=== PATIENT | female | born 1970 | race Caucasian/White ===

== ENCOUNTER → 2016-10-03 | Outpatient (REF) | payer OTHER ==
[~2016-10-03] MED LIST: EFFE150C PO; IBUPOTC PO; OMEP40CA2 PO
[2016-10-03 17:29] LABS: ANION GAP 7 MEQ/L (8-16); BLOOD UREA NITROGEN 20 MG/DL (7-18); CALCIUM LEVEL 8.8 MG/DL (8.5-10.1); CARBON DIOXIDE LEVEL 29 MEQ/L (21-32); CHLORIDE LEVEL 108 MEQ/L (98-107); CREATININE FOR GFR 0.94 MG/DL (0.55-1.02); GLOMERULAR FILTRATION RATE > 60.0 (>58); GLUCOSE, FASTING 90 MG/DL (70-105); POTASSIUM SERUM 4.1 MEQ/L (3.5-5.1); SODIUM LEVEL 144 MEQ/L (136-145)
== END ==
LOC: M LAB REF 15:59
PROVIDERS: ATTEND Physician Assistant
DX: N39.0 Urinary tract infection, site not specified (principal)

== ENCOUNTER → 2017-02-22 | Outpatient (REF) | payer OTHER | LOC: M SFHCPLAZ 15:59 | PROVIDERS: ATTEND Nurse Practitioner Family | DX: Z00.00 Encounter for general adult medical examination without abnormal findings (principal); F41.9 Anxiety disorder, unspecified; Z13.220 Encounter for screening for lipoid disorders ==

== ENCOUNTER → 2017-11-09 | Outpatient (REF) | payer OTHER ==
[2017-11-09 15:44] LABS: APPEARANCE, URINE CLOUDY (CLEAR); BACTERIA, URINE AUTO 1+ (NEGATIVE); BILIRUBIN, URINE AUTO NEGATIVE (NEGATIVE); BLOOD, URINE BLOOD 1+ (NEGATIVE); COLOR, URINE YELLOW (YELLOW); GLUCOSE, URINE (UA) AUTO NEGATIVE (NEGATIVE); KETONE, URINE AUTO NEGATIVE (NEGATIVE); LEUKOCYTE ESTERASE, URINE AUTO NEGATIVE (NEGATIVE); MUCUS, URINE SMALL (NEGATIVE); NITRITE, URINE AUTO POSITIVE (NEGATIVE); PROTEIN, URINE AUTO NEGATIVE (NEGATIVE); RBC, URINE AUTO 4 /HPF (0-3); SPECIFIC GRAVITY URINE AUTO 1.019 (1.002-1.035); SQUAMOUS EPITHELIAL CELL UR AU 5 /HPF (0-6); UROBILINOGEN, URINE AUTO 0.2 mg/dL (0.0-2.0); WBC, URINE AUTO 6 /HPF (0-3)
== END ==
LOC: M SMT 15:27
DX: R30.0 Dysuria (principal)

== ENCOUNTER → 2018-04-05 | Outpatient (REF) | payer OTHER ==
[2018-04-05 18:04] LABS: BASO # 0.1 10^3/uL (0.0-0.2); BASO % 0.5 % (0.0-1.0); EOS # 0.3 10^3/uL (0.0-0.50); EOS % 3.1 % (0.0-3.0); HEMATOCRIT 42.6 % (36.0-47.0); HEMOGLOBIN 13.8 g/dl (12.0-15.5); IMMATURE GRANULOCYTE % 0.7 % (0-3.0); LYMPH # 2.3 10^3/uL (1.5-4.5); LYMPH % 23.8 % (24.0-44.0); MEAN CORPUSCULAR HEMOGLOBIN 30.1 pg (27.0-33.0); MEAN CORPUSCULAR HGB CONC 32.4 g/dl (32.0-36.5); MEAN CORPUSCULAR VOLUME 92.8 fl (80.0-96.0); MONO # 0.7 10^3/uL (0.0-0.8); MONO % 7.2 % (0.0-5.0); NEUTROPHILS # 6.3 10^3/uL (1.8-7.7); NEUTROPHILS % 64.7 % (36.0-66.0); PLATELET COUNT, AUTOMATED 264 10^3/uL (150-450); RED BLOOD COUNT 4.59 10^6/uL (4.00-5.40); RED CELL DISTRIBUTION WIDTH 13.8 % (11.5-14.5); WHITE BLOOD COUNT 9.8 10^3/uL (4.0-10.0)
[2018-04-05 18:19] LABS: ALBUMIN 3.6 GM/DL (3.2-5.2); ALBUMIN/GLOBULIN RATIO 1.13 (1.00-1.93); ALKALINE PHOSPHATASE 75 U/L (45-117); ALT/SGPT 24 U/L (12-78); ANION GAP 6 MEQ/L (8-16); AST/SGOT 11 U/L (7-37); BILIRUBIN,TOTAL 0.2 MG/DL (0.2-1.0); BLOOD UREA NITROGEN 19 MG/DL (7-18); CALCIUM LEVEL 8.9 MG/DL (8.5-10.1); CARBON DIOXIDE LEVEL 29 MEQ/L (21-32); CHLORIDE LEVEL 106 MEQ/L (98-107); CREATININE FOR GFR 0.93 MG/DL (0.55-1.30); GLOMERULAR FILTRATION RATE > 60.0 (>58); GLUCOSE, FASTING 75 MG/DL (70-100); POTASSIUM SERUM 4.4 MEQ/L (3.5-5.1); SODIUM LEVEL 141 MEQ/L (136-145); TOTAL PROTEIN 6.8 GM/DL (6.4-8.2)
[2018-04-06 10:57] LABS: AMORPHOUS SEDIMENT MODERATE (NEGATIVE); APPEARANCE, URINE TURBID (CLEAR); BACTERIA, URINE AUTO 3+ (NEGATIVE); BILIRUBIN, URINE AUTO NEGATIVE (NEGATIVE); BLOOD, URINE BLOOD 1+ (NEGATIVE); COLOR, URINE AMBER (YELLOW); GLUCOSE, URINE (UA) AUTO NEGATIVE (NEGATIVE); KETONE, URINE AUTO NEGATIVE (NEGATIVE); LEUKOCYTE ESTERASE, URINE AUTO TRACE (NEGATIVE); MUCUS, URINE SMALL (NEGATIVE); NITRITE, URINE AUTO POSITIVE (NEGATIVE); PROTEIN, URINE AUTO NEGATIVE (NEGATIVE); RBC, URINE AUTO 0 /HPF (0-3); SPECIFIC GRAVITY URINE AUTO 1.025 (1.002-1.035); SQUAMOUS EPITHELIAL CELL UR AU 0 /HPF (0-6); URIC ACID CRYSTALS MODERATE; UROBILINOGEN, URINE AUTO 0.2 mg/dL (0.0-2.0); WBC, URINE AUTO 1 /HPF (0-3)
== END ==
LOC: M SFHCPLAZ 15:26
DX: N30.90 Cystitis, unspecified without hematuria (principal)

== ENCOUNTER → 2018-06-04 | Outpatient (REF) | payer OTHER | LOC: M SFHCPLAZ 15:36 | DX: F41.8 Other specified anxiety disorders (principal) ==

== ENCOUNTER → 2018-07-23 | Outpatient (REF) | payer OTHER ==
[2018-07-23 13:42] LABS: THYROID PEROXIDASE ANTIBODY < 28.0 U/ML (<60.0)
[2018-07-23 13:50] LABS: FREE T4 0.89 NG/DL (0.76-1.46)
== END ==
LOC: M SFHCPLAZ 10:05
DX: R79.89 Other specified abnormal findings of blood chemistry (principal); N39.0 Urinary tract infection, site not specified

== ENCOUNTER → 2018-12-13 | Outpatient (REF) | payer OTHER ==
[~2018-12-13] MED LIST changes: -EFFE150C PO; +EFFE150C2 PO
== END ==
LOC: M SFHCPLAZ 11:54
PROVIDERS: ATTEND Nurse Practitioner Family
DX: A08.4 Viral intestinal infection, unspecified (principal)

== ENCOUNTER → 2019-05-07 | Outpatient (REF) | payer OTHER ==
[2019-05-07 11:54] LABS: BASO % 0.5 % (0.0-1.0); EOS # 0.3 10^3/uL (0.0-0.50); EOS % 3.5 % (0.0-3.0); HEMATOCRIT 43.5 % (36.0-47.0); HEMOGLOBIN 13.9 g/dl (12.0-15.5); LYMPH # 2.1 10^3/uL (1.5-4.5); LYMPH % 26.1 % (24.0-44.0); MONO # 0.6 10^3/uL (0.0-0.8); NEUTROPHILS # 4.9 10^3/uL (1.8-7.7); PLATELET COUNT, AUTOMATED 250 10^3/uL (150-450); RED BLOOD COUNT 4.63 10^6/uL (4.00-5.40)
[2019-05-07 12:02] LABS: ALBUMIN 3.7 GM/DL (3.2-5.2); ALT/SGPT 25 U/L (12-78); BILIRUBIN,TOTAL 0.1 MG/DL (0.2-1.0); BLOOD UREA NITROGEN 15 MG/DL (7-18); CALCIUM LEVEL 9.1 MG/DL (8.5-10.1); CARBON DIOXIDE LEVEL 30 MEQ/L (21-32); CHLORIDE LEVEL 108 MEQ/L (98-107); CHOLESTEROL LEVEL 248 MG/DL (<200); CHOLESTEROL RISK RATIO 4.275 (<5); FREE T4 0.94 NG/DL (0.76-1.46); GLOMERULAR FILTRATION RATE > 60.0 (>58); GLUCOSE, FASTING 88 MG/DL (70-100); HDL CHOLESTEROL 58 MG/DL (>40); LDL CHOLESTEROL 173 MG/DL (<100); NON-HDL-C 190 MG/DL; POTASSIUM SERUM 4.3 MEQ/L (3.5-5.1); SODIUM LEVEL 141 MEQ/L (136-145); TOTAL PROTEIN 6.7 GM/DL (6.4-8.2); TRIGLYCERIDES LEVEL 87 MG/DL (<150)
== END ==
LOC: M SFHCPLAZ 09:16
PROVIDERS: ATTEND Nurse Practitioner Family
DX: Z13.220 Encounter for screening for lipoid disorders (principal); R06.02 Shortness of breath; R53.83 Other fatigue; F41.8 Other specified anxiety disorders; Z68.38 Body mass index [BMI] 38.0-38.9, adult; E66.9 Obesity, unspecified

== ENCOUNTER → 2020-04-28 | Outpatient (REF) | payer OTHER, MEDICAID ==
[~2020-04-28] MED LIST changes: -OMEP40CA2 PO; +OMEP40CA97 PO
[2020-05-31 15:40] LABS: BASO % 0.4 % (0.0-1.0); EOS # 0.2 10^3/uL (0.0-0.5); EOS % 2.8 % (0.0-3.0); HEMATOCRIT 43.2 % (36.0-47.0); HEMOGLOBIN 13.9 g/dl (12.0-15.5); LYMPH # 1.5 10^3/uL (1.5-5.0); LYMPH % 21.8 % (24.0-44.0); MEAN CORPUSCULAR HEMOGLOBIN 29.8 pg (27.0-33.0); MEAN CORPUSCULAR HGB CONC 32.2 g/dl (32.0-36.5); MEAN CORPUSCULAR VOLUME 92.7 fl (80.0-96.0); MONO # 0.4 10^3/uL (0.0-0.8); MONO % 5.1 % (0.0-5.0); NEUTROPHILS # 4.7 10^3/uL (1.5-8.5); NEUTROPHILS % 69.5 % (36.0-66.0); PLATELET COUNT, AUTOMATED 268 10^3/uL (150-450); RED BLOOD COUNT 4.66 10^6/uL (4.00-5.40); WHITE BLOOD COUNT 6.8 10^3/uL (4.0-10.0)
[2020-06-12 17:08] LABS: ALBUMIN 3.7 GM/DL (3.2-5.2); ALT/SGPT 21 U/L (12-78); BILIRUBIN,TOTAL 0.2 MG/DL (0.2-1.0); BLOOD UREA NITROGEN 13 MG/DL (7-18); CALCIUM LEVEL 9.2 MG/DL (8.5-10.1); CARBON DIOXIDE LEVEL 27 MEQ/L (21-32); CHLORIDE LEVEL 108 MEQ/L (98-107); CHOLESTEROL LEVEL 250 MG/DL (<200); CHOLESTEROL RISK RATIO 4.901 (<5); CREATININE FOR GFR 0.92 MG/DL (0.55-1.30); FREE T4 1.08 NG/DL (0.76-1.46); GLOMERULAR FILTRATION RATE > 60.0 (>58); GLUCOSE, FASTING 101 MG/DL (70-100); HDL CHOLESTEROL 51 MG/DL (>40); LDL CHOLESTEROL 175 MG/DL (<100); NON-HDL-C 199 MG/DL; POTASSIUM SERUM 4.3 MEQ/L (3.5-5.1); SODIUM LEVEL 142 MEQ/L (136-145); TOTAL 25(OH) VITAMIN D 21.5 NG/ML (30.0-100.0); TOTAL PROTEIN 7.1 GM/DL (6.4-8.2); TRIGLYCERIDES LEVEL 119 MG/DL (<150)
[2020-06-12 17:09] LABS: HEMOGLOBIN A1c 5.4 %
== END ==
LOC: M LAB REF 09:52
PROVIDERS: ATTEND Nurse Practitioner Family
DX: H91.93 Unspecified hearing loss, bilateral (principal); F12.90 Cannabis use, unspecified, uncomplicated; Z13.29 Encounter for screening for other suspected endocrine disorder

== ENCOUNTER → 2020-08-27 | Outpatient (REF) | payer OTHER, MEDICAID ==
[2020-08-27 17:52] LABS: BASO % 0.5 % (0.0-1.0); EOS # 0.3 10^3/uL (0.0-0.5); EOS % 4.5 % (0.0-3.0); HEMATOCRIT 42.4 % (36.0-47.0); HEMOGLOBIN 13.1 g/dl (12.0-15.5); LYMPH # 1.8 10^3/uL (1.5-5.0); LYMPH % 28.4 % (24.0-44.0); MEAN CORPUSCULAR HEMOGLOBIN 28.4 pg (27.0-33.0); MEAN CORPUSCULAR HGB CONC 30.9 g/dl (32.0-36.5); MEAN CORPUSCULAR VOLUME 91.8 fl (80.0-96.0); MONO # 0.4 10^3/uL (0.0-0.8); MONO % 6.7 % (0.0-5.0); NEUTROPHILS # 3.7 10^3/uL (1.5-8.5); NEUTROPHILS % 59.6 % (36.0-66.0); PLATELET COUNT, AUTOMATED 234 10^3/uL (150-450); RED BLOOD COUNT 4.62 10^6/uL (4.00-5.40); WHITE BLOOD COUNT 6.2 10^3/uL (4.0-10.0)
[2020-08-27 18:36] LABS: ALBUMIN 3.6 GM/DL (3.2-5.2); ALT/SGPT 23 U/L (12-78); BILIRUBIN,TOTAL 0.5 MG/DL (0.2-1.0); BLOOD UREA NITROGEN 12 MG/DL (7-18); CARBON DIOXIDE LEVEL 28 MEQ/L (21-32); CHLORIDE LEVEL 109 MEQ/L (98-107); CHOLESTEROL LEVEL 251 MG/DL (<200); CHOLESTEROL RISK RATIO 4.563 (<5); CREATININE FOR GFR 0.81 MG/DL (0.55-1.30); FREE T4 0.98 NG/DL (0.76-1.46); GLOMERULAR FILTRATION RATE > 60.0 (>51); GLUCOSE, FASTING 79 MG/DL (70-100); HDL CHOLESTEROL 55 MG/DL (>40); LDL CHOLESTEROL 176 MG/DL (<100); NON-HDL-C 196 MG/DL; SODIUM LEVEL 139 MEQ/L (136-145); TOTAL 25(OH) VITAMIN D 22.9 NG/ML (30.0-100.0); TOTAL PROTEIN 6.5 GM/DL (6.4-8.2); TRIGLYCERIDES LEVEL 100 MG/DL (<150)
== END ==
LOC: M LAB REF 16:39
PROVIDERS: ATTEND Nurse Practitioner Family
DX: E78.5 Hyperlipidemia, unspecified (principal); E66.9 Obesity, unspecified; G89.4 Chronic pain syndrome

== ENCOUNTER → 2020-09-22 | Outpatient (CLI) | payer OTHER ==
[2020-09-22 11:07] LABS: BASO % 0.6 % (0.0-1.0); EOS # 0.3 10^3/uL (0.0-0.5); EOS % 3.7 % (0.0-3.0); HEMATOCRIT 43.2 % (36.0-47.0); HEMOGLOBIN 13.5 g/dl (12.0-15.5); LYMPH # 2.1 10^3/uL (1.5-5.0); MEAN CORPUSCULAR HEMOGLOBIN 28.8 pg (27.0-33.0); MEAN CORPUSCULAR HGB CONC 31.3 g/dl (32.0-36.5); MEAN CORPUSCULAR VOLUME 92.1 fl (80.0-96.0); MONO # 0.5 10^3/uL (0.0-0.8); MONO % 6.5 % (0.0-5.0); NEUTROPHILS # 4.2 10^3/uL (1.5-8.5); NEUTROPHILS % 58.8 % (36.0-66.0); PLATELET COUNT, AUTOMATED 273 10^3/uL (150-450); RED BLOOD COUNT 4.69 10^6/uL (4.00-5.40); WHITE BLOOD COUNT 7.1 10^3/uL (4.0-10.0)
[2020-09-22 11:36] LABS: C REACTIVE PROTEIN QUANTITATIV 0.42 MG/DL (0.00-0.30); RHEUMATOID FACTOR QUANT < 10.0 IU/ML (<15.0); URIC ACID 5.5 MG/DL (2.6-6.0)
[2020-09-22 11:44] LABS: ERYTHROCYTE SEDIMENTATION RATE 14 mm/hr (0-30)
== END ==
LOC: M LAB 10:25
PROVIDERS: ATTEND Orthopaedic Surgery
DX: M79.672 Pain in left foot (principal)

== ENCOUNTER 2020-10-29 15:04 | Emergency (ER) | payer OTHER ==
[~2020-10-29] VITALS: Ht 162.6 cm; Wt 95.0 kg
--- OUTSIDE RECORDS SUMMARY | 2020-10-29 15:11 | CCD | Continuity of Care Document ---
Author Author Jessi ZALDIVARC Organization Unknown Address [address] [place] [address] Phone [phone] Care Team Providers Care Wireless Sales Expert Name Role Phone Sandie Curran AUTM Problems Description No Information Available Social History Type Date Description Comments Sex Unknown ETOH Use Rarely consumes alcohol Tobacco Use Start: Unknown Denies Smoking Allergies, Adverse Reactions, Alerts Description No Known Drug Allergies Medications Active Medications SIG Qnty Indications Ordering Provide r Date Atorvastatin Calcium 20mg Tablets Take One Tablet By Mouth Every Day Unknown Gabapentin 400mg Capsules Take One Capsule By Mouth Three Times A Day Unknown Vitamin D (Ergocalciferol) 1.25mg (01741 Ut) Capsules Take One Capsule By Mouth Every Week as Directed Unknown Gabapentin 300mg Capsules Sandie Curran FNP Fluticasone Propionate 50mcg/Act Suspension [place] Two Sprays In Each Nostril Every Day Unknown Meclizine HCL 25mg Tablets Take One Tablet By Mouth Every Day as Needed For Vertigo For 10 Days May Cause Drowsiness Unknown Pseudoephedrine HCL 30mg Tablets Take One Tablet By Mouth Four Times A Day as Needed For 10 Days Unknown Immunizations Description No Information Available Vital Signs Date Vital Result Comment 10/08/2020 2:35pm Body Temperature 96.6 F 09/22/2020 9:45am Body Temperature 96.9 F Height 64.25 inches 5'4.25" Weight 210.12 lb BMI (Body Mass Index) 35.8 kg/m2 Results Test Acquired Date Facility Test Result H/L Range Note CBC With Differential 09/22/2020 [facility] [address] [place] [address] (315)- - White Blood Count 7.1 10 Normal 4.0-10.0 Red Blood Count 4.69 10 Normal 4.00-5.40 Hemoglobin 13.5 g/dL Normal 12.0-15.5 Hematocrit 43.2 % Normal 36.0-47.0 Mean Corpuscular Volume 92.1 fl Normal 80.0-96.0 Mean Corpuscular Hemoglobin 28.8 pg Normal 27.0-33.0 Mean Corpuscular HGB Conc 31.3 g/dL Low 32.0-36.5 Red Cell Distribution Width 15.0 % High 11.5-14.5 Platelet Count, Automated 273 10 Normal 150-450 Neutrophils % 58.8 % Normal 36.0-66.0 Lymph % 30.0 % Normal 24.0-44.0 [place] % 6.5 % High 0.0-5.0 Eos % 3.7 % High 0.0-3.0 Baso % 0.6 % Normal 0.0-1.0 Immature Granulocyte % 0.4 % Normal 0-3.0 Nucleated Red Blood Cell % 0.0 % Normal 0-0 Neutrophils # 4.2 10 Normal 1.5-8.5 Lymph # 2.1 10 Normal 1.5-5.0 [place] # 0.5 10 Normal 0.0-0.8 Eos # 0.3 10 Normal 0.0-0.5 Baso # 0.0 10 Normal 0.0-0.2 Laboratory test finding 09/22/2020 [facility] [address] [place] [address] (315)- - Uric Acid 5.5 mg/dL Normal 2.6-6.0 Rheumatoid Factor Quant < 10.0 IU/mL Normal <15.0 Antinuclear Antibodies 09/22/2020 [facility] [address] [place] [address] (315)- - Antinuclear Antibodies Direct Negative Normal Negati ve 1 Laboratory test finding 09/22/2020 [facility] [address] [place] [address] (315)- - Erythrocyte Sedimentation Rate 14 mm/hr Normal 0-30 Hla-B27 Negative Normal . 2 C Reactive Protein Quantitativ 0.42 mg/dL High 0.00-0.30 Lyme Disease SCRN With Confirm 09/22/2020 [facility] [address] [place] [address] (217)- - Lyme Disease IgG/IgM Antibodie <0.91 ISR Normal 0.00- 0.90 3 Lyme Disease IgM Ab Quantitati <0.80 index Normal 0.00-0.79 4 1 Performed at: RN - [address] [id number] Brain Surgeon: Fina Damon MD, Phone: [phone] Performed at: - [address] [id number] Brain Surgeon: Nic Fowler PhD, Phone: [phone] HLA-B*27 Negative B27 allele interpretation for all loci based on IMGT/HLA database version 3.38 This test was developed and its performance characteristics determined by [facility]. It has not been cleared or approved by the Food and Drug Administration. [facility] CLIA ID Number [id number] . This test was performed using PCR (Polymerase Chain Reaction)/SSOP (Sequence Specific Oligonucleotide Probes) technique. SBT (Sequence Based Typing) and/or SSP (Sequence Specific Primers) may be used as supplemental methods when necessary. Please contact HLA Customer Service at if you have any questions. . Director of HLA Laboratory Dr Nic Fowler, PhD 3 Negative <0.91 Equivocal 0.91 - 1.09 Positive >1.09 4 Negative <0.80 Equivocal 0.80 - 1.19 Positive >1.19 . IgM levels may peak at 3-6 weeks post infection, then gradually decline. Procedures Date Code Description Status 10/08/2020 25477 X-Ray Ankle Complete Completed Medical Devices Description No Information Available Encounters Type Date Location Provider Dx Diagnosis Office Visit 10/08/2020 2:30p Cal Zaldivar PA-C M7 6.822 Posterior tibial tendinitis, left leg M21.42 Flat foot [pes planus] (acqu ired), left foot M21.41 Flat foot [pes planus] (acqu ired), right foot Office Visit 09/22/2020 9:30a NORMA SuárezC M2 5.59 Pain in other specified joint Assessments Date Code Description Provider 10/08/2020 M76.822 Posterior tibial tendinitis, lef t leg Davon Zaldivar PA-C 10/08/2020 M21.42 Flat foot [pes planus] (acquired ), left foot Davon Zaldivar PA-C 10/08/2020 M21.41 Flat foot [pes planus] (acquired ), right foot Davon Zaldivar PA-C 09/22/2020 M25.59 Pain in other specified joint Ba tuan Zaldivar PA-C Plan of Treatment Future Appointment(s):* 11/05/2020 8:30 am - Davon Zaldivar PA-C at [place] 10/08/2020 - Davon Zaldivar PA-C* M76.822 Posterior tibial tendinitis, left leg * M21.42 Flat foot [pes planus] (acquired), left foot* New Orders:* [employer], Ordered: 10/08/20 * Follow up:* in 4 weeks for benji feet recheck with bms * M21.41 Flat foot [pes planus] (acquired), right foot Functional Status Description No Information Available Mental Status Description No Information Available Referrals Description No Information Available
--- OUTSIDE RECORDS SUMMARY | 2020-10-29 15:12 | CCD | Continuity of Care Document ---
Author Author Jessi ZALDIVARC Organization Unknown Address [address] [address] Phone [phone] Care Team Providers Care Conservation Science Teacher Name Role Phone Sandie Curran AUTM Problems [...] A Day Unknown Vitamin D (Ergocalciferol) 1.25mg (98180 Ut) Capsules Take One Capsule By Mouth Every Week as Directed Unknown Gabapentin 300mg Capsules Sandie Curran FNP Fluticasone Propionate 50mcg/Act Suspension [place] Two Sprays In Each Nostril Every Day Unknown Meclizine HCL 25mg Tablets Take One Tablet By Mouth Every Day as Needed For Vertigo For 10 Days May Cause Drowsiness Unknown Pseudoephedrine HCL 30mg Tablets Take One Tablet By Mouth Four Times A Day as Needed For 10 Days Unknown Immunizations Description No Information Available Vital Signs Date Vital Result Comment 09/22/2020 9:45am Body Temperature 96.9 F Height 64.25 inches 5'4.25" Weight 210.12 lb BMI (Body Mass Index) 35.8 kg/m2 Results Test Acquired Date Facility Test Result H/L Range Note CBC With Differential 09/22/2020 [facility] [address] [place] [address] (315)- - White Blood Count 7.1 10 [...] 36.0-66.0 Lymph % 30.0 % Normal 24.0-44.0 [place] % 6.5 % High 0.0-5.0 Eos % 3.7 % High 0.0-3.0 Baso % 0.6 % Normal 0.0-1.0 Immature Granulocyte % 0.4 % Normal 0-3.0 Nucleated Red Blood Cell % 0.0 % Normal 0-0 Neutrophils # 4.2 10 Normal 1.5-8.5 Lymph # 2.1 10 Normal 1.5-5.0 [place] # 0.5 10 Normal 0.0-0.8 Eos # 0.3 10 Normal 0.0-0.5 Baso # 0.0 10 Normal 0.0-0.2 Laboratory test finding 09/22/2020 [facility] [address] [place] [address] (315)- - Uric Acid 5.5 mg/dL Normal 2.6-6.0 Rheumatoid Factor Quant < 10.0 IU/mL Normal <15.0 Antinuclear Antibodies 09/22/2020 [facility] [address] [place] [address] (315)- - Antinuclear Antibodies Direct Negative Normal Negati ve 1 Laboratory test finding 09/22/2020 [facility] [address] [place] [address] (315)- - Erythrocyte Sedimentation Rate 14 mm/hr Normal 0-30 Hla-B27 Negative Normal . 2 C Reactive Protein Quantitativ 0.42 mg/dL High 0.00-0.30 Lyme Disease SCRN With Confirm 09/22/2020 [facility] [address] [place], [place] [id number] (262)- - Lyme Disease IgG/IgM Antibodie <0.91 ISR Normal 0.00- 0.90 3 Lyme Disease IgM Ab Quantitati <0.80 index Normal 0.00-0.79 4 1 Performed at: - [address] [id number] Theatre Program Director: Fina Damon MD, Phone: [phone] Performed at: - [address] [id number] Theatre Program Director: Nic Fowler PhD, Phone: [phone] HLA-B*27 Negative B27 allele interpretation for all loci based on IMGT/HLA database version 3.38 This test was developed and its performance characteristics determined by [facility]. It has not been cleared or approved by the Food and Drug Administration. [facility] CLIA ID Number [id number] . This test was performed using PCR [...] weeks post infection, then gradually decline. Procedures Description No Information Available Medical Devices Description No Information Available Encounters Type Date Location Provider Dx Diagnosis Office Visit 09/22/2020 9:30a [place] Davon Zaldivar PA-C M2 5.59 Pain in other specified joint Assessments Date Code Description Provider 09/22/2020 M25.59 Pain in other specified joint Ba tuan Zaldivar PA-C Plan of Treatment Future Appointment(s):* 10/08/2020 2:30 pm - Davon Zaldivar PA-C at [place] 09/22/2020 - Davon Zaldivar PA-C* M25.59 Pain in other specified joint* Follow up:* after completed labs for results with bms Functional Status Description No Information Available Mental Status Description No Information Available Referrals Description No Information Available
--- OUTSIDE RECORDS SUMMARY | 2020-10-29 15:12 | CCD ---
Author Organization Unknown Address [address] [place] [address] Phone [phone] Care Team Providers Care Data Communications Software Consultant Name Role Phone Sandie Curran Unavailable Unavailable Allergies Code Code System Name Reaction Severity Status Onset NKDA Medications Name Status Start Date Stop Date fluticasone propionate 50 mcg/actuation nasal spray,suspension C ompleted 07/27/2020 gabapentin 300 mg capsule Take 1 capsule 3 times a day by oral route as directed. Active Not available meclizine 25 mg tablet Completed 0 One A Day Vitamin Active Not available pseudoephedrine 30 mg tablet Completed 05/2020 Problems Name Status Onset Date Source Cannabis Abuse Active 04/07/2020 History Endocrine/metabolic Screening Active 04/07/2020 Hi story Hearing Finding Active 04/07/2020 History Clinical Finding Active 04/07/2020 History General Finding of Observation of Patient Active 2019 History Procedures Date Name Performed by Hysterectomy Information not avai lable Tubal Ligation Information not avai lable Notes: Tubal ligation, Hysterectomy (Par tial) Results Lab Results None recorded. Past Encounters 07/29/2020 Administration of Influenza Vaccine CYN Anand-BC: [address] [place] [address], Ph. 07/27/2020 Chronic Pain; Pain of Left Ankle Joint; Adult Health Examination; Needs Influenza Immunization KEELY AnandBC: [address] [place] [address], Ph. Social History Tobacco Smoking Status Never Smoker Vaccine List Vaccine Type influenza, injectable, quadrivalent, pre servative free 07/29/20200.5 mL Notes: Pt would like Flu Vaccine this vi sit Plan of Care Reminders Provider Appointments None recorded. Lab None recorded. Referral None recorded. Procedures None recorded. Surgeries None recorded. Imaging None recorded. Vitals 07/27/2020 03:00PM NEW PATIENT EXAM Height Weight BMI Blood Pressure 64 in 216 lbs 8 oz 37.2 kg/m2 115/82 mm[Hg] 04/07/2020 Height Weight Blood Pressure 64 in 219 lbs 136/88 mm[Hg]
--- OUTSIDE RECORDS SUMMARY | 2020-10-29 15:12 | CCD ---
Author Organization Unknown Address [address] [place] [address] Phone [phone] Care Team Providers Care Jewelry Casting Model Maker Name Role Phone Sandie Curran Unavailable Unavailable Allergies Code Code System Name Reaction Severity Status Onset NKDA Medications Name Status Start Date Stop Date atorvastatin 20 mg tablet Take 1 tablet every day by oral route. Active Not available fluticasone propionate 50 mcg/actuation nasal spray,suspension C ompleted 07/27/2020 gabapentin 300 mg capsule Completed 2019 gabapentin 400 mg capsule Take 1 capsule 3 times a day by oral route. Active Not available meclizine 25 mg tablet Completed 0 One A Day Vitamin Active Not available pseudoephedrine 30 mg tablet Completed 05/2020 Vitamin D2 1,250 mcg (50,000 unit) capsu le Take 1 capsule every week by oral route as directed. Active Not available Problems Name Status Onset Date Source Cannabis Abuse Active 04/07/2020 History Endocrine/metabolic Screening Active 04/07/2020 Hi story Hearing Finding Active 04/07/2020 History Clinical Finding Active 04/07/2020 History General Finding of Observation of Patient Active 2019 History Procedures Date Name Performed by Hysterectomy Notes: partial Information not available Tubal Ligation Information not avai lable Results Lab Results Date Name Specimen Result Interpretation Description Value Range Status Address 08/27/2020 CBC W/ Auto Diff Blood venous Normal White Blood C ount 6.2 10 4.0-10.0 10 Final [facility]: 83 0 [facility] Blood venous Normal Red Blood Count 4.62 10 4.00- 5.40 10 [facility]: [address] [facility] Blood venous Normal Hemoglobin 13.1 g/dL 12.0-15. 5 g/dL [facility]: [address] [facility] Blood venous Normal Hematocrit 42.4 % 36.0-47.0 % [facility]: [address] [facility] Blood venous Normal Mean Corpuscular Volume 91.8 fL 80.0-96.0 fL [facility]: [address] [place] [address] Blood venous Normal Mean Corpuscular Hemoglob in 28.4 pg 27.0-33.0 pg [facility]: [address] [place] [address] Blood venous Low Mean Corpuscular HGB Conc 30.9 g/dL 32.0-36.5 g/dL [facility]: [address] [place] [address] Blood venous High Red Cell Distribution Width 1 5.0 % 11.5-14.5 % [facility]: [address] [place] [address] Blood venous Normal Platelet Count, Automated 234 10 150-450 10 [facility]: [address] [place] [address] Blood venous Normal Neutrophils % 59.6 % 36.0-66. 0 % [facility]: [address] [place] [address] Blood venous Normal Lymph % 28.4 % 24.0-44.0 % [facility]: [address] [place] [address] Blood venous High [place] % 6.7 % 0.0-5.0 % [facility]: [address] [place] [address] Blood venous High Eos % 4.5 % 0.0-3.0 % [facility]: [address] [place] [address] Blood venous Normal Baso % 0.5 % 0.0-1.0 % [facility]: [address] [place] [address] Blood venous Normal Immature Granulocyte % 0.3 % 0-3.0 % [facility]: [address] [place] [address] Blood venous Normal Nucleated Red Blood Cell % 0. 0 % 0-0 % [facility]: [address] [place] [address] Blood venous Normal Neutrophils # 3.7 10 1.5-8.5 10 [facility]: [address] [place] [address] Blood venous Normal Lymph # 1.8 10 1.5-5.0 10 [facility]: [address] [place] [address] Blood venous Normal [place] # 0.4 10 0.0-0.8 10 [facility]: [address] [place] [address] Blood venous Normal Eos # 0.3 10 0.0-0.5 10 [facility]: [address] [place] [address] Blood venous Normal Baso # 0.0 10 0.0-0.2 10 [facility]: [address] [place] [address] 08/27/2020 CMP, Serum or Plasma Blood venous Normal Glu cose, Fasting 79 mg/dL 70-100 mg/dL [facility] nter: [address] [place] [address] Blood venous Normal Blood Urea Nitrogen 12 mg/dL 7-18 mg/dL [facility]: [address] [place] [address] Blood venous Normal Creatinine for GFR 0.81 mg/dL 0.55-1.30 mg/dL [facility]: [address] [place] [address] Blood venous Normal Glomerular Filtration Rate > 60.0 >51 [facility]: [address] [place] [address] Blood venous Normal Sodium Level 139 mEq/L 136-14 5 mEq/L [facility]: [address] [place] [address] Blood venous Normal Potassium Serum 5.0 mEq/L 3.5 -5.1 mEq/L [facility]: [address] [place] [address] Blood venous High Chloride Level 109 mEq/L 98-1 07 mEq/L [facility]: [address] [place] [address] Blood venous Normal Carbon Dioxide Level 28 mEq/L 21-32 mEq/L [facility]: [address] [place] [address] Blood venous Low Anion Gap 2 mEq/L 8-16 mEq/L [facility]: [address] [place] [address] Blood venous Normal Calcium Level 9.0 mg/dL 8.5-1 0.1 mg/dL [facility]: [address] [place] [address] Blood venous Normal AST/SGOT 11 U/L 7-37 U/L [facility]: [address] [place] [address] Blood venous Normal ALT/SGPT 23 U/L 12-78 U/L [facility]: [address] [place] [address] Blood venous Normal Alkaline Phosphatase 82 U/L 4 5-117 U/L [facility]: [address] [place] [address] Blood venous Normal Bilirubin,total 0.5 mg/dL 0.2 -1.0 mg/dL [facility]: [address] [place] [address] Blood venous Normal Total Protein 6.5 gm/dL 6.4-8 .2 gm/dL [facility]: [address] [place] [address] Blood venous Normal Albumin 3.6 gm/dL 3.2-5.2 gm/ dL [facility]: [address] [place] [address] Blood venous Normal Albumin/globulin Ratio 1.2 1.2-2.2 [facility]: [address] [place] [address] 08/27/2020 Lipid Panel, Blood Blood venous Normal Trigl ycerides Level 100 mg/dL <150 mg/dL [facility] nter: [address] [place] [address] Blood venous High Cholesterol Level 251 mg/dL < 200 mg/dL [facility]: [address] [place] [address] Blood venous Normal HDL Cholesterol 55 mg/dL >40 mg/dL [facility]: [address] [place] [address] Blood venous High LDL Cholesterol 176 mg/dL <10 0 mg/dL [facility]: [address] [place] [address] Blood venous Normal Non-hdl-c 196 mg/dL [facility]: [address] [place] [address] Blood venous Normal Cholesterol Risk Ratio 4.563 <5 [facility]: [address] [place] [address] 08/27/2020 TSH + Free T4, Serum Blood venous Normal Thyroid Stimulating Hormone 2.780 uIU/mL 0.358-3.740 uIU/mL [facility]: [address] [place] [address] Blood venous Normal Free T4 0.98 NG/dL 0.76-1.46 NG/dL [facility]: [address] [place] [address] 08/27/2020 Vitamin D, 25-Hydroxy, Total, Serum Blood venous Low Total 25(Oh) Vitamin D 22.9 NG/mL 30.0-100.0 NG/mL Final [facility]: [address] [facility] Past Encounters 08/31/2020 Vitamin D Deficiency; Hyperlipidemia; Neuropathy; Patient Asked to Attend [facility]: [address] [place] [phone], Ph. 08/27/2020 [facility]: [address] [place] [phone], Ph. 07/29/2020 Administration of Influenza Vaccine [facility]: [address] [place] [phone], Ph. 07/27/2020 Chronic Pain; Pain of Left Ankle Joint; Adult Health Examination; Needs Influenza Immunization [facility]: [address] [place] [phone], Ph. Social History Tobacco Smoking Status Never Smoker Vaccine List Vaccine Type influenza, injectable, quadrivalent, pre servative free 07/29/20200.5 mL Notes: Pt would like Flu Vaccine this vi sit Plan of Care Patient Instructions Lab results reviewed and discussed with you today. LDL trending up. now significantly elevated at 176. Will send script to start Atorvastatin 20 mg daily at nights. Please continue healthy diet and physical activities. Please try to avoid processed foods. Please try to maintain adequate intake of water daily. Reminders Provider Appointments None recorded. Lab None recorded. Referral None recorded. Procedures None recorded. Surgeries None recorded. Imaging None recorded. Vitals 08/31/2020 09:00AM ESTABLISHED [id number] Height Weight BMI Blood Pressure 64 in 215 lbs 4 oz 36.9 kg/m2 139/87 mm[Hg] 07/27/2020 03:00PM NEW PATIENT EXAM Height Weight BMI Blood Pressure 64 in 216 lbs 8 oz 37.2 kg/m2 115/82 mm[Hg] 04/07/2020 Height Weight Blood Pressure 64 in 219 lbs 136/88 mm[Hg]
--- OUTSIDE RECORDS SUMMARY | 2020-10-29 15:12 | CCD ---
Author Organization Unknown Address [address] [place] [address] Phone [phone] Care Team Providers Care Gluing Crew Leader Name Role Phone Magdy Sandie Unavailable Unavailable Allergies Code Code System Name Reaction Severity Status Onset NKDA Medications Name Status Start Date Stop Date fluticasone propionate 50 mcg/actuation nasal spray,suspension C ompleted 07/27/2020 gabapentin 300 mg capsule Active Not av ailable meclizine 25 mg tablet Completed 0 One [...] Results Lab Results None recorded. Past Encounters 08/27/2020 CYN AnandBC: [address] [place] [address], Ph. 07/29/2020 Administration of Influenza Vaccine KEELY Anand: [address] [place] [address], Ph. 07/27/2020 Chronic Pain; Pain of Left Ankle Joint; Adult Health Examination; Needs Influenza Immunization KEELY Anand: [address] [place] [address], Ph. Social History Tobacco Smoking Status Never [...]
--- OUTSIDE RECORDS SUMMARY | 2020-10-29 15:12 | CCD | Continuity of Care Document ---
Author Author Jessi ZALDIVAR PA-C Organization Unknown Address [address] [place] [phone] Phone [phone] Care Team Providers Care Bank Teller Machine Mechanic Name Role Phone Sandie Curran CYN AUTM Problems Description No Information Available Social History Type Date Description Comments Sex Unknown Allergies, Adverse Reactions, Alerts Description No Information Available Medications Description No Information Available Immunizations Description No Information Available Vital Signs Date Vital Result Comment 09/22/2020 9:45am Body Temperature 96.9 F Height 64.25 inches 5'4.25" Weight 210.12 lb BMI (Body Mass Index) 35.8 kg/m2 Results Description No Information Available Procedures Description No Information Available Medical Devices Description No Information Available Encounters Type Date Location Provider Dx Diagnosis Office Visit 09/22/2020 9:30a [place] Davon Zaldivar PA-C M7 9.672 Pain in left foot Assessments Date Code Description Provider 09/22/2020 M79.672 Pain in left foot Davon bill PA-C Plan of Treatment 09/22/2020 - Davon Zaldivar PA-C* M79.672 Pain in left foot* New Labs:* CBC With Differential, Ordered: 09/22/20 * Uric Acid, Ordered: 09/22/20 * Rheumatoid Factor Quant, Ordered: 09/22/20 * Antinuclear Antibodies, Ordered: 09/22/20 * Erythrocyte Sedimentation Rate, Ordered: 09/22/20 * Hla-B27, Ordered: 09/22/20 * High Sensitivity C-Reactive Protein, Ordered: 09/22/20 * Lyme Disease SCRN With Confirm, Ordered: 09/22/20 * Follow up:* after completed labs for results with bms Functional Status Description No Information Available Mental Status Description No Information Available Referrals Description No Information Available
--- OUTSIDE RECORDS SUMMARY | 2020-10-29 15:12 | CCD | Continuity of Care Document ---
Author Author Jessi ZALDIVARC Organization Unknown Address [address] [place] [id number] Phone [phone] Care Team Providers Care Insurance Healthcare Representative Name Role Phone Sandie Curran AUTM Problems [...] A Day Unknown Vitamin D (Ergocalciferol) 1.25mg (96394 Ut) Capsules Take One Capsule By Mouth Every Week as Directed Unknown Gabapentin 300mg Capsules Sandie Curran FNP Fluticasone Propionate 50mcg/Act Suspension [place] Two Sprays In Each Nostril Every Day [...] H/L Range Note CBC With Differential 09/22/2020 [facility] [address] [place] [address] (315)- - White Blood Count 7.1 10 [...] 36.0-66.0 Lymph % 30.0 % Normal 24.0-44.0 [place] % 6.5 % High 0.0-5.0 Eos % 3.7 % High 0.0-3.0 Baso % 0.6 % Normal 0.0-1.0 Immature Granulocyte % 0.4 % Normal 0-3.0 Nucleated Red Blood Cell % 0.0 % Normal 0-0 Neutrophils # 4.2 10 Normal 1.5-8.5 Lymph # 2.1 10 Normal 1.5-5.0 [place] # 0.5 10 Normal 0.0-0.8 Eos # 0.3 10 Normal 0.0-0.5 Baso # 0.0 10 Normal 0.0-0.2 Laboratory test finding 09/22/2020 [facility] [address] [place] [address] (315)- - Uric Acid 5.5 mg/dL Normal 2.6-6.0 Rheumatoid Factor Quant < 10.0 IU/mL Normal <15.0 Antinuclear Antibodies 09/22/2020 [facility] [address] [place] [address] (315)- - Antinuclear Antibodies Direct Negative Normal Negati ve 1 Laboratory test finding 09/22/2020 [facility] [address] [place] [address] (315)- - Erythrocyte Sedimentation Rate 14 mm/hr Normal 0-30 Hla-B27 Negative Normal . 2 C Reactive Protein Quantitativ 0.42 mg/dL High 0.00-0.30 Lyme Disease SCRN With Confirm 09/22/2020 [facility] [address] [place], [place] [id number] (533)- - Lyme Disease IgG/IgM Antibodie <0.91 ISR Normal 0.00- 0.90 3 Lyme Disease IgM Ab Quantitati <0.80 index Normal 0.00-0.79 4 1 Performed at: RN - [address] [id number] [employer] Cut Saw Operator: Fina Damon MD, Phone: [phone] Performed at: - [address] [id number] Cross Cut Saw Operator: Nic [place] PhD, Phone: [phone] HLA-B*27 Negative B27 allele interpretation for all loci based on IMGT/HLA database version 3.38 This test was developed and its performance characteristics determined by [facility]. It has not been cleared or approved by the Food and Drug Administration. [facility] CLIA ID Number [id number] . This test was performed using PCR [...] decline. Procedures Date Code Description Status 10/08/2020 11959 X-Ray Ankle Complete Completed Medical Devices Description No Information Available Encounters Type Date Location Provider Dx Diagnosis Office Visit 09/22/2020 9:30a Oneidaviky Zaldivar PA-C M2 5.59 Pain in other specified joint Assessments Date Code Description Provider 10/08/2020 M25.59 Pain in other specified joint Devante Zaldivar PA-C 09/22/2020 M25.59 Pain in other specified joint Ba tuan Zaldivar PA-C Plan of Treatment Future Appointment(s):* 11/05/2020 8:30 am - Davon Zaldivar PA-C at [place] 10/08/2020 - Davon Zaldivar PA-C* M25.59 Pain in other specified joint* New Orders:* [facility] [employer], Ordered: 10/08/20 * Follow up:* in 4 weeks for benji feet recheck with bms Functional Status Description No Information Available Mental Status Description No Information Available Referrals Description No Information Available
--- OUTSIDE RECORDS SUMMARY | 2020-10-29 15:12 | CCD ---
Author Author [facility] Organization [facility] Address Unknown Phone Unavailable Care Team Providers Care Addictions Counselor Name Role Phone Magdy, A Sandie LACROSSE PLAYER Unavailable Unavailable [place], A Sandie LACROSSE PLAYER Unavailable Unavailable [place], A Sandie LACROSSE PLAYER Unavailable Unavailable [place], A Sandie LACROSSE PLAYER Unavailable Unavailable [place], A Sandie LACROSSE PLAYER Unavailable Unavailable [place], A Sandie LACROSSE PLAYER Unavailable Unavailable [place], A Sandie LACROSSE PLAYER Unavailable Unavailable [place], A Sandie LACROSSE PLAYER Unavailable Unavailable [place], A Sandie LACROSSE PLAYER Unavailable Unavailable Magdy, A Sandie LACROSSE PLAYER Unavailable Unavailable Magdy, A Sandie LACROSSE PLAYER Unavailable Unavailable Magdy, A Sandie LACROSSE PLAYER Unavailable Unavailable Magdy, A Sandie LACROSSE PLAYER Unavailable Unavailable Magdy, A Sandie LACROSSE PLAYER Unavailable Unavailable Magdy, A Sandie LACROSSE PLAYER Unavailable Unavailable Magdy, A Sandie LACROSSE PLAYER Unavailable Unavailable Magdy, A Sandie LACROSSE PLAYER Unavailable Unavailable Magdy, A Sandie LACROSSE PLAYER Unavailable Unavailable Magdy, A Sandie LACROSSE PLAYER Unavailable Unavailable Magdy, A Sandie LACROSSE PLAYER Unavailable Unavailable Magdy, A Sandie LACROSSE PLAYER Unavailable Unavailable Magdy, A Sandie LACROSSE PLAYER Unavailable Unavailable Magdy, A Sandie LACROSSE PLAYER Unavailable Unavailable Magdy, A Sandie LACROSSE PLAYER Unavailable Unavailable Magdy, A Sandie LACROSSE PLAYER Unavailable Unavailable Magdy, A Sandie LACROSSE PLAYER Unavailable Unavailable Magdy, A Sandie LACROSSE PLAYER Unavailable Unavailable Magdy, A Sandie LACROSSE PLAYER Unavailable Unavailable Zaldivar, M Barratt PA Unavailable Unavailable Zaldivar, M Barratt PA Unavailable Unavailable Zaldivar, M Barratt PA Unavailable Unavailable Zaldivar, M Barratt PA Unavailable Unavailable Zaldivar, M Barratt PA Unavailable Unavailable Zaldivar, M Barratt PA Unavailable Unavailable Zaldivar, M Barratt PA Unavailable Unavailable Zaldivar, M Barratt PA Unavailable Unavailable Zaldivar, M Barratt PA Unavailable Unavailable Zaldivar, M Barratt PA Unavailable Unavailable Zaldivar, M Barratt PA Unavailable Unavailable Zaldivar, M Barratt PA Unavailable Unavailable Zaldivar, M Barratt PA Unavailable Unavailable Zaldivar, M Barratt PA Unavailable Unavailable Zaldivar, M Barratt PA Unavailable Unavailable Zaldivar, M Barratt PA Unavailable Unavailable Zaldivar, M Barratt PA Unavailable Unavailable Zaldivar, M Barratt PA Unavailable Unavailable Zaldivar, M Barratt PA Unavailable Unavailable Zaldivar, M Barratt PA Unavailable Unavailable Zaldivar, M Barratt PA Unavailable Unavailable Zaldivar, M Barratt PA Unavailable Unavailable Zaldivar, M Barratt PA Unavailable Unavailable Zaldivar, M Barratt PA Unavailable Unavailable Zaldivar, M Barratt PA Unavailable Unavailable Zaldivar, M Barratt PA Unavailable Unavailable Zaldivar, M Barratt PA Unavailable Unavailable Magdy, Sandie LACROSSE PLAYER LACROSSE PLAYER Unavailable Unavailable Magdy, A Sandie LACROSSE PLAYER Unavailable Unavailable Magdy, A Sandie LACROSSE PLAYER Unavailable Unavailable Magdy, A Sandie LACROSSE PLAYER Unavailable Unavailable Magdy, A Sandie LACROSSE PLAYER Unavailable Unavailable Magdy, A Sandie LACROSSE PLAYER Unavailable Unavailable Magdy, A Sandie LACROSSE PLAYER Unavailable Unavailable Magdy, A Sandie LACROSSE PLAYER Unavailable Unavailable Magdy, A Sandie LACROSSE PLAYER Unavailable Unavailable Magdy, A Sandie LACROSSE PLAYER Unavailable Unavailable Magdy, A Sandie LACROSSE PLAYER Unavailable Unavailable Magdy, A Sandie LACROSSE PLAYER Unavailable Unavailable Magdy, A Sandie LACROSSE PLAYER Unavailable Unavailable Magdy, A Sandie LACROSSE PLAYER Unavailable Unavailable Magdy, A Sandie LACROSSE PLAYER Unavailable Unavailable Magdy, A Sandie LACROSSE PLAYER Unavailable Unavailable Magdy, A Sandie LACROSSE PLAYER Unavailable Unavailable Magdy, A Sandie LACROSSE PLAYER Unavailable Unavailable Magdy, A Sandie LACROSSE PLAYER Unavailable Unavailable Magdy, A Sandie LACROSSE PLAYER Unavailable Unavailable Magdy, A Sandie LACROSSE PLAYER Unavailable Unavailable Magdy, A Sandie LACROSSE PLAYER Unavailable Unavailable Magdy, A Sandie LACROSSE PLAYER Unavailable Unavailable Magdy, A Sandie LACROSSE PLAYER Unavailable Unavailable Magdy, A Sandie LACROSSE PLAYER Unavailable Unavailable Magdy, A Sandie LACROSSE PLAYER Unavailable Unavailable Magdy, A Sandie LACROSSE PLAYER Unavailable Unavailable Magdy, A Sandie LACROSSE PLAYER Unavailable Unavailable Magdy, A Sandie LACROSSE PLAYER Unavailable Unavailable Feola, T Aleksandra PA Unavailable Unavailable Feola, T Aleksandra PA Unavailable Unavailable Feola, T Aleksandra PA Unavailable Unavailable Feola, T Aleksandra PA Unavailable Unavailable Feola, T Aleksandra PA Unavailable Unavailable Feola, T Aleksandra PA Unavailable Unavailable Feola, T Aleksandra PA Unavailable Unavailable Feola, T Aleksandra PA Unavailable Unavailable Feola, T Aleksandra PA Unavailable Unavailable Feola, T Aleksandra PA Unavailable Unavailable Feola, T Aleksandra PA Unavailable Unavailable Feola, T Aleksandra PA Unavailable Unavailable Feola, T Aleksandra PA Unavailable Unavailable Feola, T Aleksandra PA Unavailable Unavailable Feola, T Aleksandra PA Unavailable Unavailable Feola, T Aleksandra PA Unavailable Unavailable Feola, T Aleksandra PA Unavailable Unavailable Feola, T Aleksandra PA Unavailable Unavailable Feola, T Aleksandra PA Unavailable Unavailable Feola, T Aleksandra PA Unavailable Unavailable Feola, T Aleksandra PA Unavailable Unavailable Feola, T Aleksandra PA Unavailable Unavailable Feola, T Aleksandra PA Unavailable Unavailable Feola, T Aleksandra PA Unavailable Unavailable Feola, T Aleksandra PA Unavailable Unavailable Feola, T Aleksandra PA Unavailable Unavailable Feola, T Aleksandra PA Unavailable Unavailable Feola, T Aleksandra PA Unavailable Unavailable Feola, T Aleksandra PA Unavailable Unavailable Feola, T Aleksandra PA Unavailable Unavailable Feola, T Aleksandra PA Unavailable Unavailable Feola, T Aleksandra PA Unavailable Unavailable Feola, T Aleksandra PA Unavailable Unavailable Feola, T Aleksandra PA Unavailable Unavailable Feola, T Aleksandra PA Unavailable Unavailable Feola, T Aleksandra PA Unavailable Unavailable Feola, T Aleksandra PA Unavailable Unavailable Re-disclosure Warning The records that you are about to access may contain information from federally-assisted alcohol or drug abuse programs. If such information is present, then the following federally mandated warning applies: This information has been disclosed to you from records protected by federal confidentiality rules (42 CFR part 2). The federal rules prohibit you from making any further disclosure of this information unless further disclosure is expressly permitted by the written consent of the person to whom it pertains or as otherwise permitted by 42 CFR part 2. A general authorization for the release of medical or other information is NOT sufficient for this purpose. The Federal rules restrict any use of the information to criminally investigate or prosecute any alcohol or drug abuse patient.The records that you are about to access may contain highly sensitive health information, the redisclosure of which is protected by Article 27-F of the [facility] Public Health law. If you continue you may have access to information: Regarding HIV / AIDS; Provided by facilities licensed or operated by the [facility] Office of Mental Health; or Provided by the [facility] Office for People With Developmental Disabilities. If such information is present, then the following [facility] mandated warning applies: This information has been disclosed to you from confidential records which are protected by state law. State law prohibits you from making any further disclosure of this information without the specific written consent of the person to whom it pertains, or as otherwise permitted by law. Any unauthorized further disclosure in violation of state law may result in a fine or detention sentence or both. A general authorization for the release of medical or other information is NOT sufficient authorization for further disc losure. Family History Family Member Name Family Member Gender Family Member Status Date o f Status Description Data Source(s) Unknown Female Encounters Encounter Providers Location Date Indications Data Source(s ) O Attender: Aleksandra LINARES 021 02:45:41 PM EST - 10/24/2020 03:21:26 PM EST DocuTap ([facility] ) OFFICE OUTPATIENT VISIT 15 MINUTES Attender: Davon LINARES Physical Therapy 10/08/2020 01:30:00 PM EST MEDENT ([facility]) OFFICE OUTPATIENT NEW 30 MINUTES Attender: Davon LINARES Ph ysical Therapy 09/22/2020 08:30:00 AM EST [facility] ([facility]) CYN Anand-BC: [address] [place] [address], Ph. Attender: Sandie [facility] Medical 08/31/2020 12:00:00 AM EST KEN ([facility]) [facility] [address] [place] [address], Ph. [facility] 08/27/2020 12:00:00 AM EST KEN ([facility]) LAINE [facility]: [address], [place] [address], Ph. Attender: Sandie Curran [facility] Medical 08/27/2020 12:00:00 AM EST KEN ([facility]) LAINE AnandPL[facility]: [address], [place] [address], Ph. Attender: Sandie Curran [facility] Medical 07/29/2020 12:00:00 AM EST KEN ([facility]) [facility] [address], [place] [address], Ph. Attender: Sandie Curran [facility] Medical 07/29/2020 12:00:00 AM EST KEN ([facility]) KEELY Anand: [address], [place] [address], Ph. Attender: Sandie Curran [facility] Medical 07/29/2020 12:00:00 AM EST KEN ([facility]) LAINE AnandPLos: [address], [place] [address], Ph. Attender: Sandie Curran [facility] Medical 07/29/2020 12:00:00 AM EST KEN ([facility]) Outpatient Attender: CYN ADDISON 07/27/2020 03:03:00 P M EST [facility] [address], [place] [address], Ph. Attender: Sandie Curran [facility] Medical 07/27/2020 12:00:00 AM EST KEN ([facility]) [facility] [address], [place] [address], Ph. Attender: Sandie Curran [facility] Medical 07/27/2020 12:00:00 AM EST KEN ([facility]) [facility] [address], [place] [address], Ph. Attender: Sandie Curran [facility] Medical 07/27/2020 12:00:00 AM EST KEN ([facility]) [facility]: [address], [place] [address], Ph. Attender: Sandie Curran [facility] Medical 07/27/2020 12:00:00 AM EST KEN ([facility]) Outpatient Attender: CYN ADDISON 06/22/2020 11:58:00 A M EDT [facility] Outpatient Attender: CYN ADDISON 06/20/2020 06:51:01 P M EDT [facility] Outpatient Attender: Sandie ADDISON 06/20/2020 06:5 1:00 PM EDT [facility] Outpatient Attender: CYN ADDISON 06/15/2020 08:08:00 A M EDT [facility] Outpatient Attender: CYN ADDISON 06/10/2020 12:15:00 P M EDT [facility] Outpatient Attender: Sandie JANGP FP 06/07/2020 02:2 2:03 PM EDT [facility] Outpatient Attender: CYN Magdy LACROSSE PLAYER FP 06/07/2020 02:22:02 P M EDT [facility] Health Outpatient Attender: Sandie Curran LACROSSE PLAYER FP 04/29/2020 12:0 2:37 AM EDT [facility] Health Outpatient Attender: CYN Magdy LACROSSE PLAYER FP 04/23/2020 02:38:00 P M EDT [facility] Health Outpatient Attender: CYN Magdy LACROSSE PLAYER FP 04/07/2020 05:22:01 P M EDT [facility] Outpatient Attender: Sandie Curran LACROSSE PLAYER FP 04/07/2020 05:2 1:01 PM EDT [facility] Outpatient Attender: CYN Curran LACROSSE PLAYER FP 04/07/2020 05:14:00 P M EDT [facility] Outpatient Attender: CYN Magdy LACROSSE PLAYER FP 04/07/2020 04:54:00 P M EDT [facility] Health Outpatient Attender: CYN Curran LACROSSE PLAYER FP 04/07/2020 04:53:00 P M EDT [facility] Health Outpatient Attender: CYN Magdy LACROSSE PLAYER FP 04/07/2020 04:52:01 P M EDT [facility] Outpatient Attender: CYN Magdy LACROSSE PLAYER FP 04/07/2020 04:50:00 P M EDT [facility] Outpatient Attender: CYN Magdy LACROSSE PLAYER FP 04/07/2020 03:49:01 P M EDT [facility] Outpatient Attender: CYN Curran LACROSSE PLAYER FP 04/07/2020 03:49:01 P M EDT [facility] Outpatient Attender: CYN Magdy LACROSSE PLAYER FP 04/07/2020 03:46:00 P M EDT [facility] Outpatient Attender: CYN Magdy LACROSSE PLAYER FP 04/07/2020 09:49:01 A M EDT [facility] Outpatient Attender: CYN Curran LACROSSE PLAYER FP 04/06/2020 10:08:01 A M EDT [facility] Immunizations Vaccine Date Status Description Data Source(s) New in 2011. IIV4 07/29/2020 10:16:17 AM EST completed 0.5 mL KEN ([facility]) New in 2011. IIV4 07/29/2020 10:16:17 AM EST completed .5 mL KEN ([facility]) New in 2011. IIV4 07/29/2020 10:16:17 AM EST completed .5 mL KEN ([facility]) New in 2011. IIV4 07/29/2020 10:16:17 AM EST completed .5 mL KEN ([facility]) Medications Medication Brand Name Start Date Product Form Dose Route Admi nistrative Instructions Pharmacy Instructions Status Indications Reaction Description Data Source(s) 150 mg 10/24/2020 12:00:00 AM EST tablet 1 TAKE ONE TABLET BY MOUTH ONCE A DAY FOR 1 DAY TAKE ONE TABLET BY MOUTH ONCE A DAY FOR 1 DAY SOLD: 10/24/2020 [facility] 100 mg 10/24/2020 12:00:00 AM EST capsule 20 TAKE ONE CAPSULE BY MOUTH TWICE A DAY FOR 10 DAYS TAKE ONE CAPSULE BY MOUTH TWICE A DAY FOR 10 DAYS SOLD : 10/24/2020 [facility] atorvastatin 20 MG Oral Tablet ATORVASTATIN CALCIUM 09/01/2020 1 2:00:00 AM EST tablet 30 TAKE ONE TABLET BY MOUTH EVERY D AY TAKE ONE TABLET BY MOUTH EVERY DAY SOLD: 09/01/2020 [facility] 1,250 mcg (50,000 unit) 09/01/2020 12:00:00 AM EST capsule 4 TAKE ONE CAPSULE BY MOUTH EVERY WEEK DIRECTED TAKE ONE CAPSULE BY MOUTH EVERY WEEK DIRECTED SOLD: 10/24/2020 [facility] 400 mg 09/01/2020 12:00:00 AM EST capsule 90 TAKE ONE CAPSULE BY MOUTH THREE TIMES A DAY TAKE ONE CAPSULE BY MOUTH THREE TIMES A DAY SOLD: 09/01/2020 [facility] atorvastatin 20 MG Oral Tablet ATORVASTATIN CALCIUM 09/01/2020 1 2:00:00 AM EST tablet 30 TAKE ONE TABLET BY MOUTH EVERY D AY TAKE ONE TABLET BY MOUTH EVERY DAY SOLD: 09/27/2020 [facility] 1,250 mcg (50,000 unit) 09/01/2020 12:00:00 AM EST capsule 4 TAKE ONE CAPSULE BY MOUTH EVERY WEEK DIRECTED TAKE ONE CAPSULE BY MOUTH EVERY WEEK DIRECTED SOLD: 09/01/2020 [facility] 1,250 mcg (50,000 unit) 09/01/2020 12:00:00 AM EST capsule 4 TAKE ONE CAPSULE BY MOUTH EVERY WEEK DIRECTED TAKE ONE CAPSULE BY MOUTH EVERY WEEK DIRECTED SOLD: 09/27/2020 [facility] 400 mg 09/01/2020 12:00:00 AM EST capsule 90 TAKE ONE CAPSULE BY MOUTH THREE TIMES A DAY TAKE ONE CAPSULE BY MOUTH THREE TIMES A DAY SOLD: 09/27/2020 [facility] 300 mg 07/28/2020 12:00:00 AM EST capsule 90 TAKE ONE CAPSULE BY MOUTH THREE TIMES A DAY DIRECTED TAKE ONE CAPSULE BY MOUTH THREE TIMES A DAY DIRECTE D SOLD: 08/27/2020 [facility] 300 mg 07/28/2020 12:00:00 AM EST capsule 90 TAKE ONE CAPSULE BY MOUTH THREE TIMES A DAY DIRECTED TAKE ONE CAPSULE BY MOUTH THREE TIMES A DAY DIRECTE D SOLD: 07/28/2020 [facility] 30 mg 05/10/2020 12:00:00 AM EDT tablet 40 TAKE ONE TABLET BY MOUTH FOUR TIMES A DAY NEEDED FOR 10 DAYS TAKE ONE TABLET BY MOUTH FOUR TIMES A DA Y NEEDED FOR 10 DAYS SOLD: 05/10/2020 [facility] Meclizine Hydrochloride 25 MG Oral Tablet MECLIZINE HCL 05/10/2020 12:00:00 AM EDT tablet 10 TAKE ONE TABLET BY MOUTH EVERY DAY NEEDED FOR VERTIGO FOR 10 DAYS MAY CAUSE DROWSINESS TAKE ONE TABLET BY MOUTH EVERY DAY NE EDED FOR VERTIGO FOR 10 DAYS MAY CAUSE DROWSINESS SOLD: 05/10/2020 [facility] 50 mcg/actuation 05/10/2020 12:00:00 AM EDT spray,suspension 16 SPRAY TWO SPRAYS IN EACH NOSTRIL EVERY DAY SPRAY TWO SPRAYS IN EACH NOSTRIL EVERY DAY SOLD: 05/10/2020 [facility] fluticasone propionate 50 mcg/actuation nasal spray,suspension [id number] completed fluticasone propionate 0.05 MG/ACTUAT Metered Dose Nasal [place] KEN ([facility]) fluticasone propionate 50 mcg/actuation nasal spray,suspension [id number] completed fluticasone propionate 0.05 MG/ACTUAT Metered Dose Nasal [place] KEN ([facility]) Pseudoephedrine Hydrochloride 30 MG Oral Tablet pseudo ephedrine 30 mg tablet pseudoephedrine 30 mg tablet completed pseudoephedrine hydrochloride 30 MG Oral Tablet KEN ([facility]) fluticasone propionate 50 mcg/actuation nasal spray,suspension [id number] completed fluticasone propionate 0.05 MG/ACTUAT Metered Dose Nasal [place] KEN ([facility]) Meclizine Hydrochloride 25 MG Oral Tablet meclizine 25 mg tablet meclizine 25 mg tablet completed meclizine hydro chloride 25 MG Oral Tablet KEN ([facility]) Pseudoephedrine Hydrochloride 30 MG Oral Tablet pseudo ephedrine 30 mg tablet pseudoephedrine 30 mg tablet completed pseudoephedrine hydrochloride 30 MG Oral Tablet KEN ([facility]) fluticasone propionate 50 mcg/actuation nasal spray,suspension [id number] completed fluticasone propionate 0.05 MG/ACTUAT Metered Dose Nasal [place] KEN ([facility]) Meclizine Hydrochloride 25 MG Oral Tablet meclizine 25 mg tablet meclizine 25 mg tablet completed meclizine hydro chloride 25 MG Oral Tablet KEN ([facility]) Meclizine Hydrochloride 25 MG Oral Tablet meclizine 25 mg tablet meclizine 25 mg tablet completed meclizine hydro chloride 25 MG Oral Tablet KEN ([facility]) Pseudoephedrine Hydrochloride 30 MG Oral Tablet pseudo ephedrine 30 mg tablet pseudoephedrine 30 mg tablet completed pseudoephedrine hydrochloride 30 MG Oral Tablet KEN ([facility]) Pseudoephedrine Hydrochloride 30 MG Oral Tablet pseudo ephedrine 30 mg tablet pseudoephedrine 30 mg tablet completed pseudoephedrine hydrochloride 30 MG Oral Tablet KEN ([facility]) gabapentin 300 MG Oral Capsule gabapentin 300 mg capsu le gabapentin 300 mg capsule completed gabapentin 300 MG Oral Capsule KEN ([facility]) Meclizine Hydrochloride 25 MG Oral Tablet meclizine 25 mg tablet meclizine 25 mg tablet completed meclizine hydro chloride 25 MG Oral Tablet KEN ([facility]) Insurance Providers Payer name Policy type / Coverage type Policy ID Covered alliance party ID Covered alliance party's relationship to partida Policy Partida Plan Information [facility] [id number] SP [id number] [facility] [employer]. [id number] Self [id number] [facility] [id number] SP [id number] [place] [id number] SP [id number] Medicaid S [id number] S [id number] Managed Care - [facility] Community Plan P [id number] S [id number] Medicaid S [id number] S [id number] Managed Care - [facility] Community Plan P [id number] S [id number] Medicaid S [id number] S [id number] Self Pay P UNAVAILABLE S UNAVAILA BLE [facility] [id number] ANSI-Commercial [id number] ANSI-Commercial [id number] ANSI-Commercial [id number] ANSI-Commercial [id number] ANSI-Commercial [id number] ANSI-Commercial [id number] ANSI-Commercial [id number] ANSI-Commercial [id number] ANSI-Commercial [id number] ANSI-Commercial [id number] ANSI-Commercial [id number] ANSI-Commercial [id number] ANSI-Commercial [id number] ANSI-Commercial [id number] ANSI-Commercial [id number] ANSI-Commercial [id number] ANSI-Commercial [id number] ANSI-Commercial [id number] ANSI-Commercial [id number] ANSI-Commercial [id number] ANSI-Commercial [id number] ANSI-Commercial [id number] [facility] [id number] SP [id number] [facility] [id number] SP [id number] [facility] [id number] SP [id number] 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 O [id number] S [id number] [facility]) O [id number] S [id number] SELF PAY ONLY [id number] SP [id number] SELF PAY ONLY UNAVAILABLE SP UNAV AILABLE [facility] [id number] SP [id number] [facility] COMM[facility]AN [facility] [id number] SP [id number] [facility] Medicaid Medicaid Self [facility]) P [id number] S [id number] SELF PAY UNAVAILABLE SP UNAVAILA BLE [facility] [id number] SP [id number] [facility]AN [facility] [id number] SP [id number] HMO BLUE [id number] SP [id number] Problems, Conditions, and Diagnoses Code Display Name Description Problem Type Effective Dates Data Source(s) [id number] Obesity, unspecified Obesity, unspecified 04/07/2020 05:20:26 PM EDT [facility] F12.90 Cannabis use, unspecified, uncomplicated Cannabis use, unspecified, uncomplicated 04/07/2020 05:13:40 PM EDT [facility] [id number] Endocrine/metabolic screening Endocrine/metabolic scre ening 04/07/2020 05:13:40 PM EDT [facility] V70.0 Health Screening Health Screening 04/07/2020 05 :13:40 PM EDT [facility] [id number] Unspecified hearing loss, bilateral Unsp ecified hearing loss, bilateral 04/07/2020 05:13:40 PM EDT [facility] [id number] General finding of observation of patien t General Finding of Observation of Patient Problem 04/07/2020 12:00:00 AM EDT CHRISTIANA ([facility]) [id number] Clinical finding Clinical Finding Problem 04/07/2020 12 :00:00 AM EDT CHRISTIANA ([facility]) [id number] Hearing finding Hearing Finding Problem 04/07/2020 12:0 0:00 AM EDT CHRIST[place]NA ([facility]) [id number] Endocrine/metabolic screening Endocrine/metabolic Scre ening Problem 04/07/2020 12:00:00 AM EDT CHRISTIANA ([facility]) [id number] Cannabis abuse Cannabis Abuse Problem 04/07/2020 12:00: 00 AM EDT CHRISTIANA ([facility]) [id number] General finding of observation of patien t General Finding of Observation of Patient Problem 04/07/2020 12:00:00 AM EDT KEN ([facility]) [id number] Clinical finding Clinical Finding Problem 04/07/2020 12 :00:00 AM EDT CHRISTIANA ([facility]) [id number] Hearing finding Hearing Finding Problem 04/07/2020 12:0 0:00 AM EDT CH[place]ST[place]NA ([facility]) [id number] Endocrine/metabolic screening Endocrine/metabolic Scre ening Problem 04/07/2020 12:00:00 AM EDT CHRISTIANA ([facility]) [id number] Cannabis abuse Cannabis Abuse Problem 04/07/2020 12:00: 00 AM EDT CHRISTIANA ([facility]) [id number] General finding of observation of patien t General Finding of Observation of Patient Problem 04/07/2020 12:00:00 AM EDT KEN ([facility]) [id number] Clinical finding Clinical Finding Problem 04/07/2020 12 :00:00 AM EDT CHRISTIANA ([facility]) [id number] Hearing finding Hearing Finding Problem 04/07/2020 12:0 0:00 AM EDT CHRISTIANA ([facility]) [id number] Endocrine/metabolic screening Endocrine/metabolic Scre ening Problem 04/07/2020 12:00:00 AM EDT KEN ([facility]) [id number] Cannabis abuse Cannabis Abuse Problem 04/07/2020 12:00: 00 AM EDT KEN ([facility]) [id number] General finding of observation of patien t General Finding of Observation of Patient Problem 04/07/2020 12:00:00 AM EDT KEN ([facility]) [id number] Clinical finding Clinical Finding Problem 04/07/2020 12 :00:00 AM EDT KEN ([facility]) [id number] Hearing finding Hearing Finding Problem 04/07/2020 12:0 0:00 AM EDT KEN ([facility]) [id number] Endocrine/metabolic screening Endocrine/metabolic Scre ening Problem 04/07/2020 12:00:00 AM EDT KEN ([facility]) [id number] Cannabis abuse Cannabis Abuse Problem 04/07/2020 12:00: 00 AM EDT CHRISTIANA ([facility]) Surgeries/Procedures Procedure Description Date Indications Data Source(s) RADEX ANKLE COMPLETE MINIMUM 3 VIEWS 10/08/2020 12:00: 00 AM EST MED[facility] ([facility]) Results ID Date Data Source [id number] 09/22/2020 10:36:00 AM EST [facility] ([facility]) Name Value Range Interpretation Code Description Data Sheila rce(s) Supporting Document(s) Lyme Disease IgG/IgM Antibodie Laboratory test result 0.00-0.90 [facility] ([facility]) <content>Negative <0.91</content >
<content>Equivocal 0.91 - 1.09</content>
<content>Positive >1.09</content>
<content></content> Lyme Disease IgM Ab Quantitati Laboratory test result 0.00-0.79 [facility] ([facility]) <content>Negative <0.80</content >
<content>Equivocal 0.80 - 1.19</content>
<content>Positive >1.19</content>
<content>.</content>
<content>IgM levels may peak at 3-6 weeks post infection, then</content>
<content>gradually decline.</content>
<content></content> ID Date Data Source [id number] 09/22/2020 10:36:00 AM EST [facility] ([facility]) Name Value Range Interpretation Code Description Data Sheila rce(s) Supporting Document(s) Erythrocyte sedimentation rate by Westergren method 14 mm/hr 0-30 [facility] ([facility]) C reactive protein [Mass/volume] in Serum or Plasma by High sensitivity method 0.42 mg/dL 0.00-0.30 [facility] ([facility]) HLA-B27 related Ag [Presence] Laboratory test result [facility] ([facility]) HLA-B*27 Negative B27 allele interpretation for all loci based on IMGT/HLA database version 3.38 This test was developed and its performance characteristics determined by [facility]. It has not been cleared or approved by the Food and Drug Administration. [facility] CLIA ID Number [id number] . This test was performed using PCR (Polymerase Chain Reaction)/SSOP (Sequence Specific Oligonucleotide Probes) technique. SBT (Sequence Based Typing) and/or SSP (Sequence Specific Primers) may be used as supplemental methods when necessary. Please contact [facility] Customer Service at if you have any questions. . Director of [facility] Laboratory Dr Nic Fowler, PhD ID Date Data Source [id number] 09/22/2020 10:36:00 AM EST [facility] ([facility]) Name Value Range Interpretation Code Description Data Sheila rce(s) Supporting Document(s) Antinuclear Antibodies Direct Laboratory test result [facility] ([facility]) Performed at: - [address] [id number] Acoustics Teacher: Fina Damon MD, Phone: [phone] Performed at: [address] [place] [id number] Acoustics Teacher: Nic Fowler PhD, Phone: [phone] ID Date Data Source [id number] 09/22/2020 10:36:00 AM EST [facility] ([facility]) Name Value Range Interpretation Code Description Data Sheila rce(s) Supporting Document(s) Urate [Mass/volume] in Serum or Plasma 5.5 mg/dL 2.6-6.0 [facility] ([facility] ) Rheumatoid factor [Units/volume] in Serum or Plasma Laboratory test result [facility] ([facility] ) ID Date Data Source [id number] 09/22/2020 10:36:00 AM EST [facility] ([facility] ) Name Value Range Interpretation Code Description Data Sheila rce(s) Supporting Document(s) Red Blood Count 4.69 10 4.00-5.40 [facility] ([facility] ) White Blood Count 7.1 10 4.0-10.0 [facility] ([facility] ) Hemoglobin 13.5 g/dL 12.0-15.5 [facility] ([facility]) Hematocrit 43.2 % 36.0-47.0 [facility] ([facility] ) Mean Corpuscular Volume 92.1 fl 80.0-96.0 M [facility]ENT ([facility] ) Mean Corpuscular Hemoglobin 28.8 pg 27.0-33.0 [facility] ([facility] ) Red Cell Distribution Width 15.0 % 11.5-14.5 [facility] ([facility] ) Mean Corpuscular HGB Conc 31.3 g/dL 32.0-36.5 [facility] ([facility] ) Platelet Count, Automated 273 10 150-450 [facility] ([facility] ) Neutrophils % 58.8 % 36.0-66.0 [facility] ([facility]) Lymph % 30.0 % 24.0-44.0 [facility] ([facility]) Eos % 3.7 % 0.0-3.0 [facility] ([facility]) Alcorn % 6.5 % 0.0-5.0 [facility] ([facility]) Baso % 0.6 % 0.0-1.0 [facility] ([facility]) Neutrophils # 4.2 10 1.5-8.5 [facility] ([facility]) Nucleated Red Blood Cell % 0.0 % 0-0 MED [facility] ([facility] ) Immature Granulocyte % 0.4 % 0-3.0 [facility] ([facility] ) Alcorn # 0.5 10 0.0-0.8 [facility] ([facility]) Lymph # 2.1 10 1.5-5.0 [facility] ([facility]) Eos # 0.3 10 0.0-0.5 [facility] ([facility]) Baso # 0.0 10 0.0-0.2 [facility] ([facility]) ID Date Data Source [id number] 08/27/2020 09:21:00 AM EST KEN ([facility]) Name Value Range Interpretation Code Description Data Sheila rce(s) Supporting Document(s) total 25(oh) vitamin D 22.9 NG/mL 30.0-100.0 Below low normal T otal 25(Oh) Vitamin D CHRISTIANA ([facility]) ID Date Data Source [id number] 08/27/2020 09:21:00 AM EST KEN ([facility]) Name Value Range Interpretation Code Description Data Sheila rce(s) Supporting Document(s) thyroid stimulating hormone 2.780 uIU/mL 0.358-3.740 normal Thyroid Stimulating Hormone KEN ([facility]) free T4 0.98 NG/dL 0.76-1.46 normal Free T4 CH[place]STIANA ([facility]) ID Date Data Source [id number] 08/27/2020 09:21:00 AM EST KEN ([facility]) Name Value Range Interpretation Code Description Data Sheila rce(s) Supporting Document(s) triglycerides level 100 mg/dL <150 normal Triglycerides Le philomena KEN ([facility]) cholesterol level 251 mg/dL <200 Above high normal Cholesterol Level KEN ([facility]) Cholesterol in LDL [Mass/volume] in Serum or Plasma 176 mg/dL <100 Above high normal LDL Cholesterol KEN ([facility]) HDL cholesterol 55 mg/dL >40 normal HDL Cholesterol ATHE ([facility]) non-HDL-C 196 mg/dL normal Non-hdl-c KEN ([facility]) cholesterol risk ratio <5 normal Cholesterol R isk Ratio KEN ([facility]) ID Date Data Source [id number] 08/27/2020 09:21:00 AM EST KEN ([facility]) Name Value Range Interpretation Code Description Data Sheila rce(s) Supporting Document(s) blood urea nitrogen 12 mg/dL 7-18 normal Blood Urea Nitro gen KEN ([facility]) glucose, fasting 79 mg/dL 70-100 normal Glucose, Fasting AT [facility] ([facility]) creatinine for GFR 0.81 mg/dL 0.55-1.30 normal Creatinine for GF R KEN ([facility]) chloride level 109 mEq/L 98-107 Above high normal Chloride Level CHRISTIANA ([facility]) sodium level 139 mEq/L 136-145 normal Sodium Level KEN ([facility]) potassium serum 5.0 mEq/L 3.5-5.1 normal Potassium Serum ATHE ([facility]) glomerular filtration rate > 60.0 >51 normal Glomerula r Filtration Rate KEN ([facility]) calcium level 9.0 mg/dL 8.5-10.1 normal Calcium Level CHRISTIANA ( [facility]) anion gap 2 mEq/L 8-16 Below low normal Anion Gap KEN ( [facility]) carbon dioxide level 28 mEq/L 21-32 normal Carbon Dioxide Level KEN ([facility]) AST/SGOT 11 U/L 7-37 normal AST/SGOT KEN ([facility]) total protein 6.5 gm/dL 6.4-8.2 normal Total Protein KEN ( [facility]) bilirubin,total 0.5 mg/dL 0.2-1.0 normal Bilirubin,total ATHE ([facility]) ALT/SGPT 23 U/L 12-78 normal ALT/SGPT KEN ([facility]) alkaline phosphatase 82 U/L 45-117 normal Alkaline Phosph atase KEN ([facility]) albumin/globulin ratio 1.2-2.2 normal Albumin/globu john Ratio KEN ([facility]) albumin 3.6 gm/dL 3.2-5.2 normal Albumin KEN ([facility]) ID Date Data Source [id number] 08/27/2020 09:21:00 AM EST KEN ([facility]) Name Value Range Interpretation Code Description Data Sheila rce(s) Supporting Document(s) white blood count 6.2 10 4.0-10.0 normal White Blood Count KEN ([facility]) red blood count 4.62 10 4.00-5.40 normal Red Blood Count ATHE NA ([facility]) hematocrit 42.4 % 36.0-47.0 normal Hematocrit KEN ([facility]) hemoglobin 13.1 g/dL 12.0-15.5 normal Hemoglobin KEN ([facility]) mean corpuscular volume 91.8 fL 80.0-96.0 normal Mean Corpusc ular Volume KEN ([facility]) mean corpuscular HGB conc 30.9 g/dL 32.0-36.5 Below low bindu l Mean Corpuscular HGB Conc KEN ([facility]) red cell distribution width 15.0 % 11.5-14.5 Above high no rmal Red Cell Distribution Width KEN ([facility]) mean corpuscular hemoglobin 28.4 pg 27.0-33.0 normal Mean Corpuscular Hemoglobin KEN ([facility]) platelet count, automated 234 10 150-450 normal Platelet C ount, Automated KNE ([facility]) mono % 6.7 % 0.0-5.0 Above high normal Alcorn % KEN ([facility]) neutrophils % 59.6 % 36.0-66.0 normal Neutrophils % KEN ( [facility]) lymph % 28.4 % 24.0-44.0 normal Lymph % KEN ([facility]) baso % 0.5 % 0.0-1.0 normal Baso % KEN ([facility]) eos % 4.5 % 0.0-3.0 Above high normal Eos % KEN ([facility]) immature granulocyte % 0.3 % 0-3.0 normal Immature Gran ulocyte % KEN ([facility]) nucleated red blood cell % 0.0 % 0-0 normal Nucleated Red Blood Cell % KEN ([facility]) neutrophils # 3.7 10 1.5-8.5 normal Neutrophils # KEN ( [facility]) lymph # 1.8 10 1.5-5.0 normal Lymph # KEN ([facility]) baso # 0.0 10 0.0-0.2 normal Baso # KEN ([facility]) mono # 0.4 10 0.0-0.8 normal Alcorn # KEN ([facility]) eos # 0.3 10 0.0-0.5 normal Eos # KEN ([facility]) ID Date Data Source [id number] 04/28/2020 09:46:04 AM EDT [facility] Labs In-House Blood TestsDate/Time Colle cted: April 28, 2020 9:35 AMTest Result Reference Range Normal ValueComments: taken from left ac, tolerated well.Marielle Sterling, April 28, 2020 9:46 AMAssessment & Plan Orders:[id number] Vst-Est Level I [CPT-[id number]] 10105 - Venipuncture [CPT-51674] Name Value Range Interpretation Code Description Data Sheila rce(s) Supporting Document(s) ID Date Data Source [id number] 04/28/2020 09:35:00 AM EDT [facility] Name Value Range Interpretation Code Description Data Sheila rce(s) Supporting Document(s) BG FASTING 101 mg/dL 70-100 H [facility] T4, FREE 1.08 ng/dL 0.76-1.46 N [facility] TSH 2.540 microintl units/mL 0.358-3.740 N [facility] VIT D25 TOT 21.5 ng/mL 30.0-100.0 L [facility] ID Date Data Source [id number] 04/28/2020 09:35:00 AM EDT [facility] Name Value Range Interpretation Code Description Data Sheila rce(s) Supporting Document(s) HGBA1C 5.4 % N [facility] ID Date Data Source [id number] 04/28/2020 09:35:00 AM EDT [facility] Name Value Range Interpretation Code Description Data Sheila rce(s) Supporting Document(s) HCT 43.2 % 36.0-47.0 N [facility] HGB 13.9 g/dL 12.0-15.5 [facility] MCH 32.2 G/DL pg 32.0-36.5 N [facility] MCHC 29.8 PG % 27.0-33.0 [facility] PLATELETS 268 10 10*3/mm3 150-450 [facility] RBC 4.66 10 10*6/mm3 4.00-5.40 [facility] RDW 14.1 % 11.5-14.5 [facility] WBC TOTAL 6.8 4.0-10.0 N [facility] ID Date Data Source [id number] 04/28/2020 12:00:00 AM EDT [facility] Name Value Range Interpretation Code Description Data Sheila rce(s) Supporting Document(s) HGBA1C 5.4 % [facility] ID Date Data Source [id number] 04/07/2020 04:19:58 PM EDT [facility] Measurements & CalculationsHeight: 64 inches (5 ft. 4 in.) 162.56 cm Weight: 219 pounds 99.55 kg Body Mass Index (BMI): 37.73BMI Interpretation: ObeseBody Surface Area (BSA): 2.03Vital SignsTemperature: 97.9F oral Pulse Rate: 71 beats/minuteRespiratory Rate: 18 respirations/minuteBlood Pressure: 136/88 right arm sitting automaticO2 Saturation: 100% room airVital Signs performed by: Santana Stanton LPN, April 07, 2020 4:38 PMInitial Intake Information From: patientRoom #: 11Infectious Disease / Travel ScreeningRecent travel for you or any close contacts? NoHave you had any close contact with anyone diagnosed with or under investigation for COVID-19 (coronavirus)? NoFever? NoRespiratory symptoms: cough, cold, congestion, shortness of breath, difficulty breathing? NoLoss of smell? NoLoss of taste? NoSmoking, Tobacco, Vaping or Smoke Exposure StatusSmoke Status: never smokerTobacco Use: NoDo you vape? NoPassive Smoke Exposure: YesPassive Smoke Exposure comments: boyfriend Menstrual HistoryAny possibility of ? NoComments: Partial hysterectomy Healthcare HistorySince your last office visit...Have you been admitted to the hospital? NoHave you been to an emergency room (ER) or urgent care clinic? NoHave you seen another healthcare provider? NoHave you seen a dentist? NoIntake performed by: Santana Stanton LPN, April 07, 2020 4:23 PMRate Your HealthIn general, would you say your health is? GoodPain AssessmentAre you currently having any pain which... You would like your pro vider to address? No Affects your activity level? NoDepression Screening - PHQ-2Over the last two weeks, have you... Had little interest or pleasure in doing things? Not at all Been feeling down, depressed, or hopeless? Not at all PHQ-2 Score: 0Anxiety Screening - ESDRAS-2Over the last two weeks, have you been... Feeling nervous, anxious, or on edge? Not at all Unable to stop or control worrying? Not at all ESDRAS-2 Score: 0Food InsecurityWithin the past year...Did you worry whether your food would run out before you got money to buy more? NoWas there a time when the food you bought didn't last and you didn't have money to get more? NoPatient Learning & Communication Needs Preferred learning style: by experiencePossible barriers: hearing impairmentPatient's Language used in visit: YesLanguage: pashto Screening, Brief Intervention, & Referral to Treatment (SBIRT)Pre-Screening Questions How many times have you have 4 or more drinks in a day? 0How many times have you used an illegal drug or used a prescription medication for a non-medical reason? 365Performed by: Santana Stanton LPN, April 07, 2020 4:25 PMDAST Have you used drugs other than those required for medical reasons? Yes Do you abuse more than one drug at a time? No Are you always able to stop using drugs when you want to? Yes Have you ever had blackouts or flashbacks as a result of drug use? No Do you ever feel bad or guilty about your drug use? No Does your spouse (or parents) ever complain about your involvement with your drugs? No Have you neglected your family because of your use of drugs? No Have you engaged in illegal activities in order to obtain drugs? No Have you ever experienced withdrawal symptoms (felt sick) when you stopped taking drugs? No Have you had medical problems as a result of your drug use (e.g. memory loss, hepatitis, convulsions, bleeding)? Martin's Results: DAST Score: 1 DAST Interpretation: Brief Intervention Performed by: Santana Stanton LPN, April 07, 2020 4:26 PMPatient History Medical History:AnxietyDepressionHearing problemsKidney stonesSurgical History:Tubal ligationHysterectomy (Partial)Family History:Diabetes (Mother)Substance abuse (Father)Liver disease (Father)Social/Personal History: Chief ComplaintBIL hearing loss RM 11 History of Present Illness (HPI)49 yr old female pt here today with complaints of hearing loss. 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 Pt states she has had hearing loss in right ear x 6 yrs. Pt states she had hearing aids and washed them accidentially with clothing. Pt states since pandemic started she has not had hearing aids and is unable to read lips with mask. Pt states making it difficult for her to do do her job. 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 HPI performed by: Sandie ADDISON, April 07, 2020 4:56 PMProblem ReviewProblem List was reviewed and/or updated during this visit.Medication Reconciliation & ReviewMedication List was reviewed and/or updated during this visit, including review of any ofxi-wzd-[id number] medications, herbal therapies, and/or supplements. Patient has no known medications.Allergy ReviewAllergy List was reviewed and/or updated during this visit. Patient has no known allergies.Provider Calculated and Reviewed all Clinical Protocols for patient today. Review of Systems General: Denies loss of appetite, chills, dizziness, fatigue, fever, continued fever, headache, feeling ill, sweats, night sweats, sleep disturbances, weight loss. Eyes: Denies blurring of vision, double vision, irritation, discharge, vision loss, eye pain, eye swelling, droopy eyelid, sensitivity to light, redness, itching. Ears/Nose/Throat: Complains of decreased hearing. Denies earache, ear discharge, ringing in ears, nasal congestion, nosebleeds, runny nose, sore throat, hoarseness, difficulty swallowing, dry mouth, tooth pain, bleeding gums, swollen glands. bilat hearing lossCardiovascular: Denies chest pain, palpitations, feeling faint, trouble breathing w/exertion, SOB upon lying down, SOB at night, peripheral edema, elevated blood pressure, decreased heart rate. Respiratory: Denies cough, difficulty breathing, shortness of breath, excessive sputum, coughing up blood, wheezing, chest pain. Breast: Denies discoloration, tenderness, breast changes, breast lump, nipple discharge. Gastrointestinal: Denies nausea, vomiting, diarrhea, constipation, pain or discomfort. Genitourinary: Denies urinary incontinence, pain with urination, burning with urination, urinary frequency, urinary hesitancy, urinary urgency, urinary urgency at night, incomplete emptying, blood in urine. Musculoskeletal: Denies back pain, joint pain, leg pain, other pain-see comments, joint swelling, body aches, muscle aches, muscle cramps, muscle weakness, stiffness, recent injury. Psychiatric: Denies depression, anxiety, memory loss, mental disturbance, suicidal ideation, homicidal ideation, hallucinations, paranoia, feeling stressed, hearing voices. Physical ExamGeneral Appearance: well nourished, well hydrated, no acute distressEyes, External: conjunctivae and lids normal, EOMIRespiratory, Auscultation: clear to auscultation bilaterally; no rales, r honchi, or wheezesRespiratory, Effort: no intercostal retractions or use of accessory musclesCardiovascular, Auscultation: S1, S2 audible; no murmur, rub, or gallop; RRRPeripheral Circulation: no clubbing, cyanosis, edema, or varicositiesAbdomen: soft, non-tender, no masses, bowel sounds normalGait & Station: normalSkin, Inspection: no rashes, lesions, or ulcerationsOrientation: oriented to time, place, and personMood & Affect: no depression, anxiety, or agitationJudgment & Insight: seems intactRate Your HealthIn general, would you say your health is? GoodAssessment & Plan Problems:Added: Endocrine/metabolic screening (CLV13-U01.29)Cannabis use, unspecified, uncomplicated (ICD10- F12.90)Obesity, unspecified (GFJ95-R81.9)Unspecified hearing loss, bilateral (VUG02-T98.93) Assessment: Instructions: We have made a referral for you today. We will contact you to set this up.Health Screening (ICD-V70.0) (ICD10- Z13.9) Assessment: Instructions: Fasting labs ordered for you today. Please return prior to your next visit to have labs drawn. Please fast for 8-10 hours prior.Assessment not SavedObesity; unspecified (KXO64-L37.9): Patient Instructions/Care Plan: Unspecified hearing loss- bilateral: We have made a referral for you today. We will contact you to set this up.Health Screening: Fasting labs ordered for you today. Please return prior to your next visit to have labs drawn. Please fast for 8-10 hours prior. Plan developed in collaboration with patient and/or familyAllergies:No Known Allergies (updated 04/07/2020) Orders:Audiology Consult [CPT-23029] COMP METABOLIC PANEL [CPT- 76517] CBC W/DIFF [CPT-34374] HgBA1c [CPT-12375] LIPID PANEL [CPT-62864] TSH [CPT-92001] T-4 free [CPT-89779] Vitamin D 250H Unspecified [CPT-53033] URINALYSIS [CPT-76443] Adult - Ofc Vst, NEW, Level III [CPT-01745] Follow-Up Return to clinic: 3-4 weeks for follow up Clinical Visit Summary Completed Name Value Range Interpretation Code Description Data Sheila rce(s) Supporting Document(s) Procedure Vital Signs ID Date Data Source UNK Name Value Range Interpretation Code Description Data Source(s) Body temperature 96.6 [degF] 96.6 [degF] MED[facility] ([facility]) Body mass index (BMI) [Ratio] 35.8 kg/m2 35.8 k g/m2 MEDENT ([facility]) Body weight 210.12 [lb_av] 210.12 [lb_av] MEDEN T ([facility]) Body height 64.25 [in_i] 64.25 [in_i] MEDENT ([facility]) 5'4.25" Body temperature 96.9 [degF] 96.9 [degF] MEDENT ([facility]) Body weight 3444 [oz_av] 3444 [oz_av] KEN ([facility]) Systolic blood pressure 139 mm[Hg] 139 mm[Hg] A THENA ([facility]) Body mass index (BMI) [Ratio] 36.9 kg/m2 36.9 k g/m2 KEN ([facility]) Body height 64 [in_i] 64 [in_i] KEN ([facility]) Diastolic blood pressure 87 mm[Hg] 87 mm[Hg] KEN ([facility]) Body weight 3464 [oz_av] 3464 [oz_av] KEN ([facility]) Systolic blood pressure 115 mm[Hg] 115 mm[facility]Hg[facility] Body mass index (BMI) [Ratio] 37.2 kg/m2 37.2 k g/m2 KEN ([facility]) Body height 64 [in_i] 64 [in_i] KEN ([facility]) Diastolic blood pressure 82 mm[Hg] 82 mm[Hg] KEN ([facility]) Body weight 3464 [oz_av] 3464 [oz_av] KEN ([facility]) Systolic blood pressure 115 mm[Hg] 115 mm[Hg] A THENA ([facility]) Body mass index (BMI) [Ratio] 37.2 kg/m2 37.2 k g/m2 KEN ([facility]) Body height 64 [in_i] 64 [in_i] KEN ([facility]) Diastolic blood pressure 82 mm[Hg] 82 mm[Hg] KEN ([facility]) Body weight 3464 [oz_av] 3464 [oz_av] KEN ([facility]) Systolic blood pressure 115 mm[Hg] 115 mm[Hg] [facility] Body mass index (BMI) [Ratio] 37.2 kg/m2 37.2 k g/m2 KEN ([facility]) Body height 64 [in_i] 64 [in_i] KEN ([facility]) Diastolic blood pressure 82 mm[Hg] 82 mm[Hg] KEN ([facility]) Body weight 3464 [oz_av] 3464 [oz_av] KEN ([facility]) Systolic blood pressure 115 mm[Hg] 115 mm[Hg] A THENA ([facility]) Body mass index (BMI) [Ratio] 37.2 kg/m2 37.2 k g/m2 KEN ([facility]) Body height 64 [in_i] 64 [in_i] KEN ([facility]) Diastolic blood pressure 82 mm[Hg] 82 mm[Hg] KEN ([facility]) Body weight 3504 [oz_av] 3504 [oz_av] KEN ([facility]) Systolic blood pressure 136 mm[Hg] 136 mm[Hg] A THENA ([facility]) Body height 64 [in_i] 64 [in_i] KEN ([facility]) Diastolic blood pressure 88 mm[Hg] 88 mm[Hg] KEN ([facility]) Body weight 3504 [oz_av] 3504 [oz_av] KEN ([facility]) Systolic blood pressure 136 mm[Hg] 136 mm[Hg] [facility] Body height 64 [in_i] 64 [in_i] KEN ([facility]) Diastolic blood pressure 88 mm[Hg] 88 mm[Hg] KEN ([facility]) Body weight 3504 [oz_av] 3504 [oz_av] KEN ([facility]) Systolic blood pressure 136 mm[Hg] 136 mm[Hg] A [facility] ([facility]) Body height 64 [in_i] 64 [in_i] KEN ([facility]) Diastolic blood pressure 88 mm[Hg] 88 mm[Hg] KEN ([facility]) Body weight 3504 [oz_av] 3504 [oz_av] KEN ([facility]) Systolic blood pressure 136 mm[Hg] 136 mm[Hg] [facility] Body height 64 [in_i] 64 [in_i] KEN ([facility]) Diastolic blood pressure 88 mm[Hg] 88 mm[Hg] KEN ([facility]) Patient Treatment Plan of Care Planned Activity Planned Date Details Description Data Source (s) Pseudoephedrine Hydrochloride 30 MG Oral Tablet KEN ([facility]) Meclizine Hydrochloride 25 MG Oral Tablet KEN ([facility]) gabapentin 300 MG Oral Capsule KEN ([facility]) fluticasone propionate 50 mcg/actuation nasal spray,suspension KEN ([facility]) Pseudoephedrine Hydrochloride 30 MG Oral Tablet KEN ([facility]) Meclizine Hydrochloride 25 MG Oral Tablet KEN ([facility]) fluticasone propionate 50 mcg/actuation nasal spray,suspension KEN ([facility]) Pseudoephedrine Hydrochloride 30 MG Oral Tablet KEN ([facility]) Meclizine Hydrochloride 25 MG Oral Tablet KEN ([facility]) fluticasone propionate 50 mcg/actuation nasal spray,suspension KEN ([facility]) Pseudoephedrine Hydrochloride 30 MG Oral Tablet KEN ([facility]) Meclizine Hydrochloride 25 MG Oral Tablet KEN ([facility]) fluticasone propionate 50 mcg/actuation nasal spray,suspension KEN ([facility])
[2020-10-29] MEDS ORDERED: NITR100C2 (15:21)
[2020-10-29] MEDS ORDERED: ATOR1TAB21 (15:21)
[2020-10-29] MEDS ORDERED: VITA50005 (15:21)
[2020-10-29] MEDS ORDERED: GABA-845 (15:21)
--- OUTSIDE RECORDS SUMMARY | 2020-10-29 15:51 | CCD ---
Author Author [facility] Organization [facility] Address Unknown Phone Unavailable Care Team Providers Care Senior Javascript Developer Name Role Phone Magdy, A Sandie INDUSTRIAL FABRIC CUTTER Unavailable Unavailable [place], A Sandie INDUSTRIAL FABRIC CUTTER Unavailable Unavailable [place], A Sandie INDUSTRIAL FABRIC CUTTER Unavailable Unavailable [place], A Sandie INDUSTRIAL FABRIC CUTTER Unavailable Unavailable [place], A Sandie INDUSTRIAL FABRIC CUTTER Unavailable Unavailable [place], A Sandie INDUSTRIAL FABRIC CUTTER Unavailable Unavailable [place], A Sandie INDUSTRIAL FABRIC CUTTER Unavailable Unavailable [place], A Sandie INDUSTRIAL FABRIC CUTTER Unavailable Unavailable [place], A Sandie INDUSTRIAL FABRIC CUTTER Unavailable Unavailable Magdy, A Sandie INDUSTRIAL FABRIC CUTTER Unavailable Unavailable Magdy, A Sandie INDUSTRIAL FABRIC CUTTER Unavailable Unavailable Magdy, A Sandie INDUSTRIAL FABRIC CUTTER Unavailable Unavailable Magdy, A Sandie INDUSTRIAL FABRIC CUTTER Unavailable Unavailable Magdy, A Sandie INDUSTRIAL FABRIC CUTTER Unavailable Unavailable Magdy, A Sandie INDUSTRIAL FABRIC CUTTER Unavailable Unavailable Magdy, A Sandie INDUSTRIAL FABRIC CUTTER Unavailable Unavailable Magdy, A Sandie INDUSTRIAL FABRIC CUTTER Unavailable Unavailable Magdy, A Sandie INDUSTRIAL FABRIC CUTTER Unavailable Unavailable Magdy, A Sandie INDUSTRIAL FABRIC CUTTER Unavailable Unavailable Magdy, A Sandie INDUSTRIAL FABRIC CUTTER Unavailable Unavailable Magdy, A Sandie INDUSTRIAL FABRIC CUTTER Unavailable Unavailable Magdy, A Sandie INDUSTRIAL FABRIC CUTTER Unavailable Unavailable Magdy, A Sandie INDUSTRIAL FABRIC CUTTER Unavailable Unavailable Magdy, A Sandie INDUSTRIAL FABRIC CUTTER Unavailable Unavailable Magdy, A Sandie INDUSTRIAL FABRIC CUTTER Unavailable Unavailable Magdy, A Sandie INDUSTRIAL FABRIC CUTTER Unavailable Unavailable Magdy, A Sandie INDUSTRIAL FABRIC CUTTER Unavailable Unavailable Magdy, A Sandie INDUSTRIAL FABRIC CUTTER Unavailable Unavailable Zaldivar, M Barratt PA Unavailable [...] M Barratt PA Unavailable Unavailable Magdy, Sandie INDUSTRIAL FABRIC CUTTER INDUSTRIAL FABRIC CUTTER Unavailable Unavailable Magdy, A Sandie INDUSTRIAL FABRIC CUTTER Unavailable Unavailable Magdy, A Sandie INDUSTRIAL FABRIC CUTTER Unavailable Unavailable Magdy, A Sandie INDUSTRIAL FABRIC CUTTER Unavailable Unavailable Magdy, A Sandie INDUSTRIAL FABRIC CUTTER Unavailable Unavailable Magdy, A Sandie INDUSTRIAL FABRIC CUTTER Unavailable Unavailable Magdy, A Sandie INDUSTRIAL FABRIC CUTTER Unavailable Unavailable Magdy, A Sandie INDUSTRIAL FABRIC CUTTER Unavailable Unavailable Magdy, A Sandie INDUSTRIAL FABRIC CUTTER Unavailable Unavailable Magdy, A Sandie INDUSTRIAL FABRIC CUTTER Unavailable Unavailable Magdy, A Sandie INDUSTRIAL FABRIC CUTTER Unavailable Unavailable Magdy, A Sandie INDUSTRIAL FABRIC CUTTER Unavailable Unavailable Magdy, A Sandie INDUSTRIAL FABRIC CUTTER Unavailable Unavailable Magdy, A Sandie INDUSTRIAL FABRIC CUTTER Unavailable Unavailable Magdy, A Sandie INDUSTRIAL FABRIC CUTTER Unavailable Unavailable Magdy, A Sandie INDUSTRIAL FABRIC CUTTER Unavailable Unavailable Magdy, A Sandie INDUSTRIAL FABRIC CUTTER Unavailable Unavailable Magdy, A Sandie INDUSTRIAL FABRIC CUTTER Unavailable Unavailable Magdy, A Sandie INDUSTRIAL FABRIC CUTTER Unavailable Unavailable Magdy, A Sandie INDUSTRIAL FABRIC CUTTER Unavailable Unavailable Magdy, A Sandie INDUSTRIAL FABRIC CUTTER Unavailable Unavailable Magdy, A Sandie INDUSTRIAL FABRIC CUTTER Unavailable Unavailable Magdy, A Sandie INDUSTRIAL FABRIC CUTTER Unavailable Unavailable Magdy, A Sandie INDUSTRIAL FABRIC CUTTER Unavailable Unavailable Magdy, A Sandie INDUSTRIAL FABRIC CUTTER Unavailable Unavailable Magdy, A Sandie INDUSTRIAL FABRIC CUTTER Unavailable Unavailable Magdy, A Sandie INDUSTRIAL FABRIC CUTTER Unavailable Unavailable Magdy, A Sandie INDUSTRIAL FABRIC CUTTER Unavailable Unavailable Magdy, A Sandie INDUSTRIAL FABRIC CUTTER Unavailable Unavailable Feola, T Aleksandra PA Unavailable [...] is protected by Article 27-F of the [facility] Public Health law. If you continue you may have access to information: Regarding HIV / AIDS; Provided by facilities licensed or operated by the [facility] Office of Mental Health; or Provided by the [facility] Office for People With Developmental Disabilities. If such information is present, then the following [facility] mandated warning applies: This information has [...] law may result in a fine or snf sentence or both. A general authorization for [...] EST - 10/24/2020 03:21:26 PM EST [facility] ([facility] ) OFFICE OUTPATIENT VISIT 15 MINUTES Attender: Davon LINARES Physical Therapy 10/08/2020 01:30:00 PM EST [facility] ([facility]) OFFICE OUTPATIENT NEW 30 MINUTES Attender: Davon LINARES Ph ysical Therapy 09/22/2020 08:30:00 AM EST [facility] ([facility]) CYN Anand-BC: [address] [facility] [place] [address], Ph. Attender: Sandie [facility] Medical 08/31/2020 12:00:00 AM EST [facility] ([facility]) [facility] [address], [place] [address], Ph. [facility] 08/27/2020 12:00:00 AM EST [facility] ([facility]) LAINE AnandPLos: [address], [place] [address], Ph. Attender: Sandie [facility] Medical 08/27/2020 12:00:00 AM EST [facility] ([facility]) LAINE AnandPLos: [address], [place] [address], Ph. Attender: Sandie [facility] Medical 07/29/2020 12:00:00 AM EST [facility] ([facility]) [facility] [address], [place] [address], Ph. Attender: Sandie Curran [facility] Medical 07/29/2020 12:00:00 AM EST [facility] ([facility]) KEELY Anand: [address], [place] [address], Ph. Attender: Sandie Curran [facility] Medical 07/29/2020 12:00:00 AM EST [facility] ([facility]) LAINE AnandPLos: [address], [place] [address], Ph. Attender: Sandie Curran [facility] Medical 07/29/2020 12:00:00 AM EST [facility] ([facility]) Outpatient Attender: CYN ADDISON 07/27/2020 03:03:00 P M EST [facility] [address], [place] [address], Ph. Attender: Sandie Curran [facility] Medical 07/27/2020 12:00:00 AM EST [facility] ([facility]) [facility] [address], [place] [address], Ph. Attender: Sandie Curran [facility] Medical 07/27/2020 12:00:00 AM EST [facility] ([facility]) [facility] [address], [place] [address], Ph. Attender: Sandie Curran [facility] Medical 07/27/2020 12:00:00 AM EST [facility] ([facility]) [facility] [address], [place] [address], Ph. Attender: Sandie Curran [facility] Medical 07/27/2020 12:00:00 AM EST [facility] ([facility]) Outpatient Attender: CYN ADDISON 06/22/2020 11:58:00 A M EDT [facility] Outpatient Attender: CYN ADDISON 06/20/2020 06:51:01 P M EDT [facility] Outpatient Attender: Sandie ADDISON 06/20/2020 06:5 1:00 PM EDT [facility] Outpatient Attender: CYN ADDISON 06/15/2020 08:08:00 A M EDT [facility] Outpatient Attender: CYN ADDISON 06/10/2020 12:15:00 P M EDT [facility] Outpatient Attender: Sandie JANGP FP 06/07/2020 02:2 2:03 PM EDT [facility] Outpatient Attender: CYN Magdy INDUSTRIAL FABRIC CUTTER FP 06/07/2020 02:22:02 P M EDT [facility] Outpatient Attender: Sandie Curran INDUSTRIAL FABRIC CUTTER FP 04/29/2020 12:0 2:37 AM EDT [facility] Outpatient Attender: CYN Magdy INDUSTRIAL FABRIC CUTTER FP 04/23/2020 02:38:00 P M EDT [facility] Outpatient Attender: CYN Magdy INDUSTRIAL FABRIC CUTTER FP 04/07/2020 05:22:01 P M EDT [facility] Outpatient Attender: Sandie Curran INDUSTRIAL FABRIC CUTTER FP 04/07/2020 05:2 1:01 PM EDT [facility] Outpatient Attender: CYN Curran INDUSTRIAL FABRIC CUTTER FP 04/07/2020 05:14:00 P M EDT [facility] Outpatient Attender: CYN Magdy INDUSTRIAL FABRIC CUTTER FP 04/07/2020 04:54:00 P M EDT [facility] Outpatient Attender: CYN Curran INDUSTRIAL FABRIC CUTTER FP 04/07/2020 04:53:00 P M EDT [facility] Outpatient Attender: CYN Magdy INDUSTRIAL FABRIC CUTTER FP 04/07/2020 04:52:01 P M EDT [facility] Outpatient Attender: CYN Magdy INDUSTRIAL FABRIC CUTTER FP 04/07/2020 04:50:00 P M EDT [facility] Outpatient Attender: CYN Magdy INDUSTRIAL FABRIC CUTTER FP 04/07/2020 03:49:01 P M EDT [facility] Outpatient Attender: CYN Curran INDUSTRIAL FABRIC CUTTER FP 04/07/2020 03:49:01 P M EDT [facility] Outpatient Attender: CYN Magdy INDUSTRIAL FABRIC CUTTER FP 04/07/2020 03:46:00 P M EDT [facility] Outpatient Attender: CYN Magdy INDUSTRIAL FABRIC CUTTER FP 04/07/2020 09:49:01 A M EDT [facility] Outpatient Attender: CYN Curran INDUSTRIAL FABRIC CUTTER FP 04/06/2020 10:08:01 A M EDT [facility] Immunizations Vaccine Date Status Description Data Source(s) New in 2011. IIV4 07/29/2020 10:16:17 AM EST completed 0.5 mL [facility] ([facility]) New in 2011. IIV4 07/29/2020 10:16:17 AM EST completed .5 mL [facility] ([facility]) New in 2011. IIV4 07/29/2020 10:16:17 AM EST completed .5 mL [facility] ([facility]) New in 2011. IIV4 07/29/2020 10:16:17 AM EST completed .5 mL [facility] ([facility]) Medications Medication Brand Name Start Date [...] TABLET BY MOUTH EVERY DAY SOLD: 09/27/2020 [facility] 1,250 mcg (50,000 unit) 09/01/2020 [...] Drugs fluticasone propionate 50 mcg/actuation nasal spray,suspension [id number] completed fluticasone propionate 0.05 MG/ACTUAT Metered Dose Nasal [place] E[place] ([facility]) fluticasone propionate 50 mcg/actuation nasal spray,suspension 691419 completed fluticasone propionate 0.05 MG/ACTUAT Metered Dose Nasal [place] KEN ([facility]) Pseudoephedrine Hydrochloride 30 MG Oral Tablet pseudo ephedrine 30 mg tablet pseudoephedrine 30 mg tablet completed pseudoephedrine hydrochloride 30 MG Oral Tablet [facility] ([facility]) fluticasone propionate 50 mcg/actuation nasal spray,suspension 962009 completed fluticasone propionate 0.05 MG/ACTUAT Metered Dose Nasal [place] KEN ([facility]) Meclizine Hydrochloride 25 MG Oral Tablet meclizine 25 mg tablet meclizine 25 mg tablet completed meclizine hydro chloride 25 MG Oral Tablet K[facility] ([facility]) Pseudoephedrine Hydrochloride 30 MG Oral Tablet pseudo ephedrine 30 mg tablet pseudoephedrine 30 mg tablet completed pseudoephedrine hydrochloride 30 MG Oral Tablet [facility] ([facility]) fluticasone propionate 50 mcg/actuation nasal spray,suspension 876729 completed fluticasone propionate 0.05 MG/ACTUAT Metered Dose Nasal [place] KEN ([facility]) Meclizine Hydrochloride 25 MG Oral Tablet meclizine 25 mg tablet meclizine 25 mg tablet completed meclizine hydro chloride 25 MG Oral Tablet K[facility] ([facility]) Meclizine Hydrochloride 25 MG Oral Tablet meclizine 25 mg tablet meclizine 25 mg tablet completed meclizine hydro chloride 25 MG Oral Tablet K[facility] ([facility]) Pseudoephedrine Hydrochloride 30 MG Oral Tablet pseudo ephedrine 30 mg tablet pseudoephedrine 30 mg tablet completed pseudoephedrine hydrochloride 30 MG Oral Tablet [facility] ([facility]) Pseudoephedrine Hydrochloride 30 MG Oral Tablet pseudo ephedrine 30 mg tablet pseudoephedrine 30 mg tablet completed pseudoephedrine hydrochloride 30 MG Oral Tablet [facility] ([facility]) gabapentin 300 MG Oral Capsule gabapentin 300 mg capsu le gabapentin 300 mg capsule completed gabapentin 300 MG Oral Capsule K[facility] ([facility]) Meclizine Hydrochloride 25 MG Oral Tablet meclizine 25 mg tablet meclizine 25 mg tablet completed meclizine hydro chloride 25 MG Oral Tablet K[facility] ([facility]) Insurance Providers Payer name Policy type / Coverage type Policy ID Covered democrat ID Covered democrat's relationship to partida Policy Partida Plan Information [facility] [id number] SP [id number] [facility] [employer] [id number] Self [id number] [facility] [id number] SP [id number] [place] [id number] SP [id number] Medicaid S [id number] S [id number] Managed Care - [facility] Community Plan P [id number] S [id number] Medicaid S [id number] S [id number] Managed Care - [facility] Community Plan P [id number] S [id number] Medicaid S [id number] S [id number] Self Pay P UNAVAILABLE S UNAVAILA BLE [facility]LY [facility] [id number] ANSI-Commercial [id number] ANSI-Commercial [id number] ANSI-Commercial [id number] ANSI-Commercial [id number] ANSI-Commercial [id number] ANSI-Commercial [id number] ANSI-Commercial [id number] ANSI-Commercial [id number] ANSI-Commercial [id number] ANSI-Commercial [id number] ANSI-Commercial [id number] ANSI-Commercial [id number] ANSI-Commercial [id number] ANSI-Commercial [id number] ANSI-Commercial [id number] ANSI-Commercial [id number] ANSI-Commercial [id number] ANSI-Commercial [id number] ANSI-Commercial [id number] ANSI-Commercial [id number] ANSI-Commercial [id number] ANSI-Commercial [id number] [facility]LY [facility] [id number] SP [id number] [facility] [id number] SP [id number] [facility] [id number] SP [id number] 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 O [id number] S [id number] [facility](MCAID) O [id number] S [id number] SELF PAY ONLY [id number] SP [id number] SELF PAY ONLY UNAVAILABLE SP UNAV AILABLE [facility] [id number] SP [id number] [facility] [id number] SP [id number] [facility] Medicaid Medicaid Self [facility]) P [id number] S [id number] SELF PAY UNAVAILABLE SP UNAVAILA BLE [id number] SP [id number] [facility] [id number] SP [id number] HMO BLUE [id number] SP [id number] Problems, Conditions, and Diagnoses Code Display Name Description Problem Type Effective Dates Data Source(s) 216349962 Obesity, unspecified Obesity, unspecified 04/07/2020 05:20:26 PM EDT [facility] F12.90 Cannabis use, unspecified, uncomplicated Cannabis use, unspecified, uncomplicated 04/07/2020 05:13:40 PM EDT [facility] 299904246 Endocrine/metabolic screening Endocrine/metabolic scre ening 04/07/2020 05:13:40 PM EDT [facility] V70.0 Health Screening Health Screening 04/07/2020 05 :13:40 PM EDT [facility] 43063314 Unspecified hearing loss, bilateral Unsp ecified hearing loss, bilateral 04/07/2020 05:13:40 PM EDT [facility] [id number] General finding of observation of patien t General Finding of Observation of Patient Problem 04/07/2020 12:00:00 AM EDT [place] ([facility]) [id number] Clinical finding Clinical Finding Problem 04/07/2020 12 :00:00 AM EDT [place] ([facility]) 071529685 Hearing finding Hearing Finding Problem 04/07/2020 12:0 0:00 AM EDT [place] ([facility]) 344145847 Endocrine/metabolic screening Endocrine/metabolic Scre ening Problem 04/07/2020 12:00:00 AM EDT [place] ([facility]) 03658133 Cannabis abuse Cannabis Abuse Problem 04/07/2020 12:00: 00 AM EDT [place] ([facility]) 181271313 General finding of observation of patien t General Finding of Observation of Patient Problem 04/07/2020 12:00:00 AM EDT [facility] ([facility]) 256479313 Clinical finding Clinical Finding Problem 04/07/2020 12 :00:00 AM EDT [place] ([facility]) [id number] Hearing finding Hearing Finding Problem 04/07/2020 12:0 0:00 AM EDT [place] ([facility]) 294303091 Endocrine/metabolic screening Endocrine/metabolic Scre ening Problem 04/07/2020 12:00:00 AM EDT [place] ([facility]) 83850978 Cannabis abuse Cannabis Abuse Problem 04/07/2020 12:00: 00 AM EDT [place] ([facility]) 713302081 General finding of observation of patien t General Finding of Observation of Patient Problem 04/07/2020 12:00:00 AM EDT [facility] ([facility]) 610251557 Clinical finding Clinical Finding Problem 04/07/2020 12 :00:00 AM EDT [place] ([facility]) 523590317 Hearing finding Hearing Finding Problem 04/07/2020 12:0 0:00 AM EDT [place] ([facility]) 645839093 Endocrine/metabolic screening Endocrine/metabolic Scre ening Problem 04/07/2020 12:00:00 AM EDT [facility] ([facility]) 58872722 Cannabis abuse Cannabis Abuse Problem 04/07/2020 12:00: 00 AM EDT [facility] ([facility]) 950232386 General finding of observation of patien t General Finding of Observation of Patient Problem 04/07/2020 12:00:00 AM EDT [facility] ([facility]) 358853966 Clinical finding Clinical Finding Problem 04/07/2020 12 :00:00 AM EDT [facility] ([facility]) 226908609 Hearing finding Hearing Finding Problem 04/07/2020 12:0 0:00 AM EDT [facility] ([facility]) 790374241 Endocrine/metabolic screening Endocrine/metabolic Scre ening Problem 04/07/2020 12:00:00 AM EDT [facility] ([facility]) 97232447 Cannabis abuse Cannabis Abuse Problem 04/07/2020 12:00: 00 AM EDT [place] ([facility]) Surgeries/Procedures Procedure Description Date Indications Data Source(s) RADEX ANKLE COMPLETE MINIMUM 3 VIEWS 10/08/2020 12:00: 00 AM EST [facility] ([facility]) Results ID Date Data Source [id number] 09/22/2020 10:36:00 AM EST [facility] ([facility]) Name Value Range Interpretation Code Description Data Sheila rce(s) Supporting Document(s) Lyme Disease IgG/IgM Antibodie Laboratory test result 0.00-0.90 [facility] ([facility]) <content>Negative <0.91</content >
<content>Equivocal 0.91 - 1.09</content>
<content>Positive >1.09</content>
<content></content> Lyme Disease IgM Ab Quantitati Laboratory test result 0.00-0.79 [facility] ([facility]) <content>Negative <0.80</content >
<content>Equivocal 0.80 - 1.19</content>
<content>Positive >1.19</content>
<content>.</content>
<content>IgM levels may peak at 3-6 weeks post infection, then</content>
<content>gradually decline.</content>
<content></content> ID Date Data Source [id number] 09/22/2020 10:36:00 AM EST [facility] ([facility]) Name Value Range Interpretation Code Description Data Sheila rce(s) Supporting Document(s) Erythrocyte sedimentation rate by Westergren method 14 mm/hr 0-30 [facility] ([facility]) C reactive protein [Mass/volume] in Serum or Plasma by High sensitivity method 0.42 mg/dL 0.00-0.30 [facility] ([facility]) HLA-B27 related Ag [Presence] Laboratory test result [facility] ([facility]) HLA-B*27 Negative B27 allele interpretation for all loci based on IMGT/HLA database version 3.38 This test was developed and its performance characteristics determined by [employer]. It has not been cleared or approved by the Food and Drug Administration. [facility] CLIA ID Number [id number] . This test was performed using PCR (Polymerase Chain Reaction)/SSOP (Sequence Specific Oligonucleotide Probes) technique. SBT (Sequence Based Typing) and/or SSP (Sequence Specific Primers) may be used as supplemental methods when necessary. Please contact [facility] Customer Service at if you have any questions. . Director of [facility] Dr Nic Fowler, PhD ID Date Data Source [id number] 09/22/2020 10:36:00 AM EST [facility] ([facility]) Name Value Range Interpretation Code Description Data Sheila rce(s) Supporting Document(s) Antinuclear Antibodies Direct Laboratory test result [facility] ([facility]) Performed at: - [address] [id number] Underwriting Sales Representative: Fina Damon MD, Phone: [phone] Performed at: [address] [place] [address] [id number] Underwriting Sales Representative: Nic Fowler PhD, Phone: [phone] ID Date Data Source [id number] 09/22/2020 10:36:00 AM EST [facility] ([facility]) Name Value Range Interpretation Code Description Data Sheila rce(s) Supporting Document(s) Urate [Mass/volume] in Serum or Plasma 5.5 mg/dL 2.6-6.0 [facility] ([facility] Rheumatoid factor [Units/volume] in Serum or Plasma Laboratory test result [facility] ([facility] ) ID Date Data Source [id number] 09/22/2020 10:36:00 AM EST [facility] ([facility] Name Value Range Interpretation Code Description Data Sheila rce(s) Supporting Document(s) Red Blood Count 4.69 10 4.00-5.40 [facility] ([facility] White Blood Count 7.1 10 4.0-10.0 [facility] ([facility] Hemoglobin 13.5 g/dL 12.0-15.5 [facility] ([facility]) Hematocrit 43.2 % 36.0-47.0 [facility] ([facility] Mean Corpuscular Volume 92.1 fl 80.0-96.0 M [facility] ([facility] Mean Corpuscular Hemoglobin 28.8 pg 27.0-33.0 [facility] ([facility] ) Red Cell Distribution Width 15.0 % 11.5-14.5 MEDENT ([facility] ) Mean Corpuscular HGB Conc 31.3 g/dL 32.0-36.5 MEDENT ([facility] ) Platelet Count, Automated 273 10 150-450 MEDENT ([facility] ) Neutrophils % 58.8 % 36.0-66.0 MEDENT ([facility]) Lymph % 30.0 % 24.0-44.0 MEDENT ([facility]) Eos % 3.7 % 0.0-3.0 MEDENT ([facility]) [place] % 6.5 % 0.0-5.0 MEDENT ([facility]) Baso % 0.6 % 0.0-1.0 MEDENT ([facility]) Neutrophils # 4.2 10 1.5-8.5 MEDENT ([facility]) Nucleated Red Blood Cell % 0.0 % 0-0 MED ENT ([facility] ) Immature Granulocyte % 0.4 % 0-3.0 MEDENT ([facility] ) [place] # 0.5 10 0.0-0.8 MEDENT ([facility]) Lymph # 2.1 10 1.5-5.0 MEDENT ([facility]) Eos # 0.3 10 0.0-0.5 MEDENT ([facility]) Baso # 0.0 10 0.0-0.2 MEDENT ([facility]) ID Date Data Source [id number] 08/27/2020 09:21:00 AM EST KEN ([facility]) Name Value Range Interpretation Code Description Data Sheila rce(s) Supporting Document(s) total 25(oh) vitamin D 22.9 NG/mL 30.0-100.0 Below low normal T otal 25(Oh) Vitamin D [place]TG[place] ([facility]) ID Date Data Source [id number] 08/27/2020 09:21:00 AM EST KEN ([facility]) Name Value Range Interpretation Code Description Data Sheila rce(s) Supporting Document(s) thyroid stimulating hormone 2.780 uIU/mL 0.358-3.740 normal Thyroid Stimulating Hormone KEN ([facility]) free T4 0.98 NG/dL 0.76-1.46 normal Free T4 [place] ([facility]) ID Date Data Source [id number] 08/27/2020 09:21:00 AM EST KEN ([facility]) Name Value Range Interpretation Code Description Data Sheila rce(s) Supporting Document(s) triglycerides level 100 mg/dL <150 normal Triglycerides Le philomena KEN ([facility]) cholesterol level 251 mg/dL <200 Above high normal Cholesterol Level KEN ([facility]) Cholesterol in LDL [Mass/volume] in Serum or Plasma 176 mg/dL <100 Above high normal LDL Cholesterol KEN ([facility]) HDL cholesterol 55 mg/dL >40 normal HDL Cholesterol ATHE ([facility]) non-HDL-C 196 mg/dL normal Non-hdl-c KEN ([facility]) cholesterol risk ratio <5 normal Cholesterol R isk Ratio KEN ([facility]) ID Date Data Source [id number] 08/27/2020 09:21:00 AM EST KEN ([facility]) Name Value Range Interpretation Code Description Data Sheila rce(s) Supporting Document(s) blood urea nitrogen 12 mg/dL 7-18 normal Blood Urea Nitro gen KEN ([facility]) glucose, fasting 79 mg/dL 70-100 normal Glucose, Fasting AT [facility] ([facility]) creatinine for GFR 0.81 mg/dL 0.55-1.30 normal Creatinine for GF R KEN ([facility]) chloride level 109 mEq/L 98-107 Above high normal Chloride Level [place] ([facility]) sodium level 139 mEq/L 136-145 normal Sodium Level KEN (No [facility]) potassium serum 5.0 mEq/L 3.5-5.1 normal Potassium Serum ATHE ([facility]) glomerular filtration rate > 60.0 >51 normal Glomerula r Filtration Rate KEN ([facility]) calcium level 9.0 mg/dL 8.5-10.1 normal Calcium Level [place] ( [facility]) anion gap 2 mEq/L 8-16 Below low normal Anion Gap KEN ( [facility]) carbon dioxide level 28 mEq/L 21-32 normal Carbon Dioxide Level KEN ([facility]) AST/SGOT 11 U/L 7-37 normal AST/SGOT KEN ([facility]) total protein 6.5 gm/dL 6.4-8.2 normal Total Protein KEN ( [facility]) bilirubin,total 0.5 mg/dL 0.2-1.0 normal Bilirubin,total ATHE ([facility]) ALT/SGPT 23 U/L 12-78 normal ALT/SGPT KEN ([facility]) alkaline phosphatase 82 U/L 45-117 normal Alkaline Phosph atase KEN ([facility]) albumin/globulin ratio 1.2-2.2 normal Albumin/globu john Ratio KEN ([facility]) albumin 3.6 gm/dL 3.2-5.2 normal Albumin KEN ([facility]) ID Date Data Source [id number] 08/27/2020 09:21:00 AM EST KEN ([facility]) Name Value Range Interpretation Code Description Data Sheila rce(s) Supporting Document(s) white blood count 6.2 10 4.0-10.0 normal White Blood Count KEN ([facility]) red blood count 4.62 10 4.00-5.40 normal Red Blood Count ATHE NA ([facility]) hematocrit 42.4 % 36.0-47.0 normal Hematocrit KEN ([facility]) hemoglobin 13.1 g/dL 12.0-15.5 normal Hemoglobin KEN ([facility]) mean corpuscular volume 91.8 fL 80.0-96.0 normal Mean Corpusc ular Volume KEN ([facility]) mean corpuscular HGB conc 30.9 g/dL 32.0-36.5 Below low bindu l Mean Corpuscular HGB Conc KEN ([facility]) red cell distribution width 15.0 % 11.5-14.5 Above high no rmal Red Cell Distribution Width KEN ([facility]) mean corpuscular hemoglobin 28.4 pg 27.0-33.0 normal Mean Corpuscular Hemoglobin KEN ([facility]) platelet count, automated 234 10 150-450 normal Platelet C ount, Automated KEN ([facility]) mono % 6.7 % 0.0-5.0 Above high normal [place] % KEN ([facility]) neutrophils % 59.6 % 36.0-66.0 normal Neutrophils % KEN ( [facility]) lymph % 28.4 % 24.0-44.0 normal Lymph % KEN ([facility]) baso % 0.5 % 0.0-1.0 normal Baso % KEN ([facility]) eos % 4.5 % 0.0-3.0 Above high normal Eos % KEN ([facility]) immature granulocyte % 0.3 % 0-3.0 normal Immature Gran ulocyte % KEN ([facility]) nucleated red blood cell % 0.0 % 0-0 normal Nucleated Red Blood Cell % KEN ([facility]) neutrophils # 3.7 10 1.5-8.5 normal Neutrophils # KEN ( [facility]) lymph # 1.8 10 1.5-5.0 normal Lymph # KEN ([facility]) baso # 0.0 10 0.0-0.2 normal Baso # KEN ([facility]) mono # 0.4 10 0.0-0.8 normal [place] # KEN ([facility]) eos # 0.3 10 0.0-0.5 normal Eos # KEN ([facility]) ID Date Data Source [id number] 04/28/2020 09:46:04 AM EDT [facility] In-House Blood TestsDate/Time Colle cted: April 28, 2020 9:35 AMTest Result Reference Range Normal ValueComments: taken from left ac, tolerated well.Marielle Sterling, April 28, 2020 9:46 AMAssessment & Plan Orders:[id number] Vst-Est Level I [CPT-40169] [id number] - Venipuncture [CPT-98044] Name Value Range Interpretation Code Description Data Sheila rce(s) Supporting Document(s) ID Date Data Source [id number] 04/28/2020 09:35:00 AM EDT [facility] Name Value Range Interpretation Code Description Data Sheila rce(s) Supporting Document(s) BG FASTING 101 mg/dL 70-100 H [facility] T4, FREE 1.08 ng/dL 0.76-1.46 N [facility] TSH 2.540 microintl units/mL 0.358-3.740 N [facility] VIT D25 TOT 21.5 ng/mL 30.0-100.0 L [facility] ID Date Data Source [id number] 04/28/2020 09:35:00 AM EDT [facility] Name Value Range Interpretation Code Description Data Sheila rce(s) Supporting Document(s) HGBA1C 5.4 % N [facility] ID Date Data Source [id number] 04/28/2020 09:35:00 AM EDT [facility] Name Value Range Interpretation Code Description Data Sheila rce(s) Supporting Document(s) HCT 43.2 % 36.0-47.0 N [facility] HGB 13.9 g/dL 12.0-15.5 [facility] MCH 32.2 G/DL pg 32.0-36.5 N [facility] MCHC 29.8 PG % 27.0-33.0 [facility] PLATELETS 268 10 10*3/mm3 150-450 [facility] RBC 4.66 10 10*6/mm3 4.00-5.40 [facility] RDW 14.1 % 11.5-14.5 [facility] WBC TOTAL 6.8 4.0-10.0 N [facility] ID Date Data Source [id number] 04/28/2020 12:00:00 AM EDT [facility] Name Value Range Interpretation Code Description Data Sheila rce(s) Supporting Document(s) HGBA1C 5.4 % [facility] ID Date Data Source [id number] 04/07/2020 04:19:58 PM EDT [facility] Measurements & CalculationsHeight: 64 inches (5 ft. [...] hearing impairmentPatient's Language used in visit: YesLanguage: georgian Screening, Brief Intervention, & Referral to Treatment [...] job. 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 HPI performed by: Sandie ADDISON, April 07, 2020 4:56 PMProblem ReviewProblem List was reviewed and/or updated during this visit.Medication Reconciliation & ReviewMedication List was reviewed and/or updated during this visit, including review of any ukkh-ath-rlydznu medications, herbal therapies, and/or supplements. Patient has [...] is? GoodAssessment & Plan Problems:Added: Endocrine/metabolic screening (SUP95-M68.29)Cannabis use, unspecified, uncomplicated (ICD10- F12.90)Obesity, unspecified (TLC18-E62.9)Unspecified hearing loss, bilateral (AUZ76-C19.93) Assessment: Instructions: We have made a referral for you today. We will contact you to set this up.Health Screening (ICD-V70.0) (ICD10- Z13.9) Assessment: Instructions: Fasting labs ordered for you today. Please return prior to your next visit to have labs drawn. Please fast for 8-10 hours prior.Assessment not SavedObesity; unspecified (GST94-C91.9): Patient Instructions/Care Plan: Unspecified hearing loss- bilateral: We have made a referral for you today. We will contact you to set this up.Health Screening: Fasting labs ordered for you today. Please return prior to your next visit to have labs drawn. Please fast for 8-10 hours prior. Plan developed in collaboration with patient and/or familyAllergies:No Known Allergies (updated 04/07/2020) Orders:Audiology Consult [CPT-01008] COMP METABOLIC PANEL [CPT- 33575] CBC W/DIFF [CPT-74620] HgBA1c [CPT-87519] LIPID PANEL [CPT-26591] TSH [CPT-75624] T-4 free [CPT-24770] Vitamin D 250H Unspecified [CPT-73460] URINALYSIS [CPT-88185] Adult - Ofc Vst, NEW, Level III [CPT-48033] Follow-Up Return to clinic: 3-4 weeks for follow up Clinical Visit Summary Completed Name Value Range Interpretation Code Description Data Sheila rce(s) Supporting Document(s) Procedure Vital Signs ID Date Data Source [id number] Name Value Range Interpretation Code Description Data Source(s) Body temperature 96.6 [degF] 96.6 [degF] MEDENT ([facility]) Body mass index (BMI) [Ratio] 35.8 kg/m2 35.8 k g/m2 MEDENT ([facility]) Body weight 210.12 [lb_av] 210.12 [lb_av] MEDEN T ([facility]) Body height 64.25 [in_i] 64.25 [in_i] MEDENT ([facility]) 5'4.25" Body temperature 96.9 [degF] 96.9 [degF] MEDENT ([facility]) Body weight 3444 [oz_av] 3444 [oz_av] KEN ([facility]) Systolic blood pressure 139 mm[Hg] 139 mm[Hg] A THENA ([facility]) Body mass index (BMI) [Ratio] 36.9 kg/m2 36.9 k g/m2 KEN ([facility]) Body height 64 [in_i] 64 [in_i] KEN ([facility]) Diastolic blood pressure 87 mm[Hg] 87 mm[Hg] KEN ([facility]) Body weight 3464 [oz_av] 3464 [oz_av] KEN ([facility]) Systolic blood pressure 115 mm[Hg] 115 [facility] Body mass index (BMI) [Ratio] 37.2 kg/m2 37.2 k g/m2 KEN ([facility]) Body height 64 [in_i] 64 [in_i] KEN ([facility]) Diastolic blood pressure 82 mm[Hg] 82 mm[Hg] KEN ([facility]) Body weight 3464 [oz_av] 3464 [oz_av] KEN ([facility]) Systolic blood pressure 115 mm[Hg] 115 mm[Hg] A THENA ([facility]) Body mass index (BMI) [Ratio] 37.2 kg/m2 37.2 k g/m2 KEN ([facility]) Body height 64 [in_i] 64 [in_i] KEN ([facility]) Diastolic blood pressure 82 mm[Hg] 82 mm[Hg] KEN ([facility]) Body weight 3464 [oz_av] 3464 [oz_av] KEN ([facility]) Systolic blood pressure 115 mm[Hg] 115 mm[facility]Hg[facility] Body mass index (BMI) [Ratio] 37.2 kg/m2 37.2 k g/m2 KEN ([facility]) Body height 64 [in_i] 64 [in_i] EKN ([facility]) Diastolic blood pressure 82 mm[Hg] 82 mm[Hg] KEN ([facility]) Body weight 3464 [oz_av] 3464 [oz_av] KEN ([facility]) Systolic blood pressure 115 mm[Hg] 115 mm[Hg] A THENA ([facility]) Body mass index (BMI) [Ratio] 37.2 kg/m2 37.2 k g/m2 KEN ([facility]) Body height 64 [in_i] 64 [in_i] EKN ([facility]) Diastolic blood pressure 82 mm[Hg] 82 mm[Hg] KEN ([facility]) Body weight 3504 [oz_av] 3504 [oz_av] KEN ([facility]) Systolic blood pressure 136 mm[Hg] 136 mm[Hg] A THENA ([facility]) Body height 64 [in_i] 64 [in_i] KEN ([facility]) Diastolic blood pressure 88 mm[Hg] 88 mm[Hg] KEN ([facility]) Body weight 3504 [oz_av] 3504 [oz_av] KEN ([facility]) Systolic blood pressure 136 mm[Hg] 136 mm[facility]Hg[facility] Body height 64 [in_i] 64 [in_i] KEN ([facility]) Diastolic blood pressure 88 mm[Hg] 88 mm[Hg] KEN ([facility]) Body weight 3504 [oz_av] 3504 [oz_av] KEN ([facility]) Systolic blood pressure 136 mm[Hg] 136 mm[Hg] A [facility] ([facility]) Body height 64 [in_i] 64 [in_i] KEN ([facility]) Diastolic blood pressure 88 mm[Hg] 88 mm[Hg] KEN ([facility]) Body weight 3504 [oz_av] 3504 [oz_av] KEN ([facility]) Systolic blood pressure 136 mm[Hg] 136 mm[facility]Hg] [facility] Body height 64 [in_i] 64 [in_i] KEN ([facility]) Diastolic blood pressure 88 mm[Hg] 88 mm[Hg] KEN ([facility]) Patient Treatment Plan of Care Planned Activity Planned Date Details Description Data Source (s) Pseudoephedrine Hydrochloride 30 MG Oral Tablet KEN ([facility]) Meclizine Hydrochloride 25 MG Oral Tablet KEN ([facility]) gabapentin 300 MG Oral Capsule KEN ([facility]) fluticasone propionate 50 mcg/actuation nasal spray,suspension KEN ([facility]) Pseudoephedrine Hydrochloride 30 MG Oral Tablet KEN ([facility]) Meclizine Hydrochloride 25 MG Oral Tablet KEN ([facility]) fluticasone propionate 50 mcg/actuation nasal spray,suspension KEN ([facility]) Pseudoephedrine Hydrochloride 30 MG Oral Tablet KEN ([facility]) Meclizine Hydrochloride 25 MG Oral Tablet KEN ([facility]) fluticasone propionate 50 mcg/actuation nasal spray,suspension KEN ([facility]) Pseudoephedrine Hydrochloride 30 MG Oral Tablet KEN ([facility]) Meclizine Hydrochloride 25 MG Oral Tablet KEN ([facility]) fluticasone propionate 50 mcg/actuation nasal spray,suspension KEN ([facility])
[2020-10-29] MEDS ORDERED: ACETAMINOPHEN 500 MG TAB PO ONE (16:30)
[2020-10-29] MEDS ORDERED: LIDOCAINE 5% (LIDODERM) PATCH TD ONE (16:30)
--- NOTE | 2020-10-29 16:50 | REP ---
INDICATION: fall, tailbone pain. COMPARISON: Comparison radiograph 24 July 2009.. TECHNIQUE: Three views of the sacrum and coccyx. FINDINGS: Three views of the sacrum and coccyx show no evidence of fracture or subluxation. SI joints are intact and normally aligned. Symphysis pubis is unremarkable. The sacrum and coccyx are not displaced. Pre sacral soft tissues do not appear to be widened. IMPRESSION: No abnormality noted. <Electronically signed by Charlie Lambert > 10/29/20 0819
[2020-10-29 17:19] LABS: BASO # 0.1 10^3/uL (0.0-0.2); BASO % 0.6 % (0.0-1.0); EOS # 0.3 10^3/uL (0.0-0.5); EOS % 2.9 % (0.0-3.0); HEMATOCRIT 42.5 % (36.0-47.0); HEMOGLOBIN 13.6 g/dl (12.0-15.5); LYMPH # 2.5 10^3/uL (1.5-5.0); MEAN CORPUSCULAR HEMOGLOBIN 29.1 pg (27.0-33.0); MONO # 0.5 10^3/uL (0.0-0.8); MONO % 5.6 % (0.0-5.0); NEUTROPHILS # 5.3 10^3/uL (1.5-8.5); NEUTROPHILS % 61.4 % (36.0-66.0); PLATELET COUNT, AUTOMATED 304 10^3/uL (150-450); RED BLOOD COUNT 4.67 10^6/uL (4.00-5.40); WHITE BLOOD COUNT 8.6 10^3/uL (4.0-10.0)
[2020-10-29 17:41] LABS: ALBUMIN 3.9 GM/DL (3.2-5.2); ALT/SGPT 22 U/L (12-78); BILIRUBIN,DIRECT 0.1 MG/DL (0.0-0.2); BILIRUBIN,TOTAL 0.3 MG/DL (0.2-1.0); BLOOD UREA NITROGEN 17 MG/DL (7-18); CALCIUM LEVEL 9.7 MG/DL (8.5-10.1); CARBON DIOXIDE LEVEL 28 MEQ/L (21-32); CHLORIDE LEVEL 105 MEQ/L (98-107); CREATININE FOR GFR 0.88 MG/DL (0.55-1.30); GLOMERULAR FILTRATION RATE > 60.0 (>51); GLUCOSE, FASTING 77 MG/DL (70-100); LIPASE 89 U/L (73-393); POTASSIUM SERUM 3.9 MEQ/L (3.5-5.1); SODIUM LEVEL 140 MEQ/L (136-145); TOTAL PROTEIN 7.1 GM/DL (6.4-8.2)
--- NOTE | 2020-10-29 19:34 | REPVR ---
PROCEDURE INFORMATION: Exam: CT Abdomen And Pelvis Without Contrast Exam date and time: 10/29/2020 6:19 PM Age: 50 years old Clinical indication: Abdominal pain; Additional info: R flank/low back pain, hematuria, R/O stone TECHNIQUE: Imaging protocol: Computed tomography of the abdomen and pelvis without contrast. Radiation optimization: All CT scans at this facility use at least one of these dose optimization techniques: automated exposure control; mA and/or kV adjustment per patient size (includes targeted exams where dose is matched to clinical indication); or iterative reconstruction. COMPARISON: CT ABD PELVIS WITH CONTRAST 04/30/2015 1:20 PM FINDINGS: Mediastinal space: Small hiatal hernia containing fat. Liver: Normal. No mass. Gallbladder and bile ducts: Normal. No calcified stones. No ductal dilation. Pancreas: Normal. No ductal dilation. Spleen: Normal. No splenomegaly. Adrenal glands: Normal. No mass. Kidneys and ureters: Multiple right renal cysts, the largest measuring 4.8 cm at the upper pole. 1 mm nonobstructing calculus in the midpole of right kidney. 2 mm nonobstructing calculus in the upper pole of the right kidney. Stomach and bowel: Unremarkable. No obstruction. No mucosal thickening. Appendix: No evidence of appendicitis. Intraperitoneal space: Unremarkable. No free air. No significant fluid collection. Vasculature: Unremarkable. No abdominal aortic aneurysm. Lymph nodes: Unremarkable. No enlarged lymph nodes. Urinary bladder: Small amount of air in the urinary bladder. Clinical correlation with recent catheterization. Reproductive: Unremarkable as visualized. Bones/joints: Unremarkable. No acute fracture. Soft tissues: Unremarkable. IMPRESSION: No acute abdominal or pelvic abnormality. Small amount of air in the urinary bladder. Clinical correlation with recent catheterization. COMMENTS: Consistent with the [employer]'s Incidental Findings Committee white paper (J Am Ti Radiol 2018): Any incidental renal lesion less than 1 cm or classified as too small to characterize, or any incidental cystic renal lesion characterized as simple-appearing, is likely benign. No follow-up imaging is recommended for these lesions per consensus recommendations based on imaging criteria. Electronically signed by: Abhinav Lacy On 10/29/2020 19:33:35 PM
[2020-10-29] MEDS ORDERED: BACL10TA2 PO (19:51)
[2020-10-29] MEDS ORDERED: LIDO5DIS41 TOP (19:51)
[2020-10-29 20:00] VITALS: BP 131/79
[2020-10-29] MEDS ORDERED: **NOTE PATIENT COMMENT** MISC XX SCH (21:00)
== END 2020-10-29 20:01 | disposition home or self-care (01) ==
LOC: M ED 15:04
DX: S39.012A Strain of muscle, fascia and tendon of lower back, initial encounter (principal); S30.0XXA Contusion of lower back and pelvis, initial encounter; W18.39XA Other fall on same level, initial encounter; Y92.89 Other specified places as the place of occurrence of the external cause; Y99.0 Civilian activity done for income or pay; N20.0 Calculus of kidney; E78.5 Hyperlipidemia, unspecified; F33.9 Major depressive disorder, recurrent, unspecified; F41.9 Anxiety disorder, unspecified; M10.9 Gout, unspecified; F12.20 Cannabis dependence, uncomplicated

== ENCOUNTER → 2020-11-12 | Outpatient (REF) | payer OTHER ==
[~2020-11-12] MED LIST changes: +ATOR1TAB21; +BACL10TA2 PO; +GABA-845; +LIDO5DIS41 TOP; +NITR100C2; +VITA50005
[2020-11-12 13:38] LABS: APPEARANCE, URINE CLEAR (CLEAR); BACTERIA, URINE AUTO NEGATIVE (NEGATIVE); BILIRUBIN, URINE AUTO NEGATIVE (NEGATIVE); BLOOD, URINE BLOOD NEGATIVE (NEGATIVE); COLOR, URINE YELLOW (YELLOW); GLUCOSE, URINE (UA) AUTO NEGATIVE (NEGATIVE); KETONE, URINE AUTO NEGATIVE (NEGATIVE); LEUKOCYTE ESTERASE, URINE AUTO NEGATIVE (NEGATIVE); MUCUS, URINE SMALL (NEGATIVE); NITRITE, URINE AUTO NEGATIVE (NEGATIVE); PROTEIN, URINE AUTO NEGATIVE (NEGATIVE); RBC, URINE AUTO 2 /HPF (0-3); SPECIFIC GRAVITY URINE AUTO 1.013 (1.002-1.035); SQUAMOUS EPITHELIAL CELL UR AU 0 /HPF (0-6); UROBILINOGEN, URINE AUTO 0.2 mg/dL (0.0-2.0); WBC, URINE AUTO 1 /HPF (0-3)
== END ==
LOC: M SMT 13:02
PROVIDERS: ATTEND Nurse Practitioner Women's Health
DX: R31.29 Other microscopic hematuria (principal)

== ENCOUNTER → 2020-12-03 | Outpatient (REF) | payer OTHER ==
[2020-12-03 16:46] LABS: BASO % 0.4 % (0.0-1.0); EOS # 0.2 10^3/uL (0.0-0.5); EOS % 2.8 % (0.0-3.0); HEMATOCRIT 40.3 % (36.0-47.0); LYMPH # 1.8 10^3/uL (1.5-5.0); LYMPH % 23.2 % (24.0-44.0); MEAN CORPUSCULAR HEMOGLOBIN 29.5 pg (27.0-33.0); MEAN CORPUSCULAR HGB CONC 32.3 g/dl (32.0-36.5); MEAN CORPUSCULAR VOLUME 91.6 fl (80.0-96.0); MONO # 0.5 10^3/uL (0.0-0.8); MONO % 6.4 % (2.0-8.0); NEUTROPHILS # 5.2 10^3/uL (1.5-8.5); NEUTROPHILS % 66.9 % (36.0-66.0); PLATELET COUNT, AUTOMATED 271 10^3/uL (150-450); WHITE BLOOD COUNT 7.8 10^3/uL (4.0-10.0)
[2020-12-03 16:51] LABS: ALBUMIN 3.5 GM/DL (3.2-5.2); ALT/SGPT 18 U/L (12-78); BILIRUBIN,TOTAL 0.2 MG/DL (0.2-1.0); BLOOD UREA NITROGEN 19 MG/DL (7-18); CALCIUM LEVEL 9.1 MG/DL (8.5-10.1); CARBON DIOXIDE LEVEL 30 MEQ/L (21-32); CHLORIDE LEVEL 109 MEQ/L (98-107); CHOLESTEROL LEVEL 161 MG/DL (<200); CHOLESTEROL RISK RATIO 2.875 (<5); CREATININE FOR GFR 0.67 MG/DL (0.55-1.30); GLOMERULAR FILTRATION RATE > 60.0 (>51); GLUCOSE, FASTING 88 MG/DL (70-100); HDL CHOLESTEROL 56 MG/DL (>40); LDL CHOLESTEROL 93 MG/DL (<100); NON-HDL-C 105 MG/DL; POTASSIUM SERUM 4.4 MEQ/L (3.5-5.1); SODIUM LEVEL 142 MEQ/L (136-145); TOTAL PROTEIN 6.2 GM/DL (6.4-8.2); TRIGLYCERIDES LEVEL 59 MG/DL (<150)
[2020-12-03 17:01] LABS: TOTAL 25(OH) VITAMIN D 64.5 NG/ML (30.0-100.0)
== END ==
LOC: M LAB REF 16:09
PROVIDERS: ATTEND Nurse Practitioner Family
DX: E78.5 Hyperlipidemia, unspecified (principal)

== ENCOUNTER → 2022-05-13 | Outpatient (CLI) | payer OTHER ==
[~2022-05-13] MED LIST changes: +ERGO500029; +GABA-283; -GABA-845; +OMEP40CA4 PO; -OMEP40CA97 PO; -VITA50005
[2022-05-13 16:46] LABS: BASO # 0.1 10^3/uL (0.0-0.2); BASO % 0.6 % (0.0-1.0); EOS # 0.2 10^3/uL (0.0-0.5); EOS % 2.7 % (0.0-3.0); HEMATOCRIT 41.3 % (36.0-47.0); HEMOGLOBIN 13.1 g/dl (12.0-15.5); LYMPH # 1.9 10^3/uL (1.5-5.0); LYMPH % 24.4 % (24.0-44.0); MEAN CORPUSCULAR HEMOGLOBIN 30.7 pg (27.0-33.0); MEAN CORPUSCULAR HGB CONC 31.7 g/dl (32.0-36.5); MEAN CORPUSCULAR VOLUME 96.7 fl (80.0-96.0); MONO # 0.6 10^3/uL (0.0-0.8); MONO % 7.1 % (2.0-8.0); NEUTROPHILS # 5.1 10^3/uL (1.5-8.5); NEUTROPHILS % 64.7 % (36.0-66.0); PLATELET COUNT, AUTOMATED 247 10^3/uL (150-450); RED BLOOD COUNT 4.27 10^6/uL (4.00-5.40); WHITE BLOOD COUNT 7.9 10^3/uL (4.0-10.0)
[2022-05-13 17:42] LABS: ALBUMIN 3.6 GM/DL (3.2-5.2); ALT/SGPT 22 U/L (12-78); BILIRUBIN,TOTAL 0.3 MG/DL (0.2-1.0); BLOOD UREA NITROGEN 18 MG/DL (7-18); CALCIUM LEVEL 9.2 MG/DL (8.5-10.1); CARBON DIOXIDE LEVEL 28 MEQ/L (21-32); CHLORIDE LEVEL 105 MEQ/L (98-107); CREATININE FOR GFR 0.85 MG/DL (0.55-1.30); GLOMERULAR FILTRATION RATE > 60.0 (>51); GLUCOSE, FASTING 108 MG/DL (70-100); POTASSIUM SERUM 3.8 MEQ/L (3.5-5.1); SODIUM LEVEL 138 MEQ/L (136-145); TOTAL PROTEIN 6.5 GM/DL (6.4-8.2)
[2022-05-13 18:02] LABS: CK-MB VALUE MASS < 1.0 NG/ML (<3.6); CPK CREATINE PHOSPHOKINASE 110 U/L (26-192); MB/CK RELATIVE INDEX 0.91 (< OR =4)
== END ==
LOC: M WUC 13:12
PROVIDERS: ATTEND Physician Assistant
DX: R07.1 Chest pain on breathing (principal); F41.9 Anxiety disorder, unspecified

== ENCOUNTER → 2022-05-20 | Outpatient (REF) | payer OTHER ==
[2022-05-20 21:30] LABS: GC DNA AMPLIFICATION NEGATIVE (NEGATIVE)
== END ==
LOC: M LAB REF 19:54
PROVIDERS: ATTEND Pediatrics
DX: R30.9 Painful micturition, unspecified (principal)

== ENCOUNTER → 2022-06-02 | Outpatient (CLI) | payer OTHER | LOC: M RAD 15:01 | PROVIDERS: ATTEND Pediatrics | DX: N39.0 Urinary tract infection, site not specified (principal) ==

== ENCOUNTER → 2022-12-16 | Outpatient (REF) | payer OTHER ==
[2022-12-16 16:58] LABS: BASO % 0.6 % (0.0-1.0); EOS # 0.2 10^3/uL (0.0-0.5); EOS % 3.8 % (0.0-3.0); HEMATOCRIT 43.6 % (36.0-47.0); HEMOGLOBIN 13.9 g/dl (12.0-15.5); LYMPH # 1.8 10^3/uL (1.5-5.0); LYMPH % 28.5 % (24.0-44.0); MEAN CORPUSCULAR HEMOGLOBIN 29.8 pg (27.0-33.0); MEAN CORPUSCULAR HGB CONC 31.9 g/dl (32.0-36.5); MEAN CORPUSCULAR VOLUME 93.6 fl (80.0-96.0); MONO # 0.5 10^3/uL (0.0-0.8); MONO % 7.2 % (2.0-8.0); NEUTROPHILS # 3.7 10^3/uL (1.5-8.5); NEUTROPHILS % 58.9 % (36.0-66.0); PLATELET COUNT, AUTOMATED 260 10^3/uL (150-450); RED BLOOD COUNT 4.66 10^6/uL (4.00-5.40); WHITE BLOOD COUNT 6.3 10^3/uL (4.0-10.0)
[2022-12-16 17:19] LABS: ALBUMIN 3.4 G/DL (3.2-5.2); ALKALINE PHOSPHATASE 87 U/L (46-116); ALT/SGPT 16 U/L (7.0-40); AST/SGOT 13 U/L (<34); BILIRUBIN,TOTAL 0.4 MG/DL (0.3-1.2); BLOOD UREA NITROGEN 15 MG/DL (9-23); CALCIUM LEVEL 9.1 MG/DL (8.5-10.1); CARBON DIOXIDE LEVEL 29 MMOL/L (20-31); CHLORIDE LEVEL 106 MMOL/L (98-107); CHOLESTEROL LEVEL 258 MG/DL (<200); CHOLESTEROL RISK RATIO 4.49 (<5); CREATININE FOR GFR 0.86 MG/DL (0.55-1.30); GLOMERULAR FILTRATION RATE > 60.0 (>51); GLUCOSE, FASTING 83 MG/DL (60-100); HDL CHOLESTEROL 57.4 MG/DL (>40); LDL CHOLESTEROL 176.2 MG/DL (<100); NON-HDL-C 200.6 MG/DL; POTASSIUM SERUM 5.1 MMOL/L (3.5-5.1); SODIUM LEVEL 139 MMOL/L (136-145); THYROID STIMULATING HORMONE 4.036 uIU/ML (0.55-4.78); TOTAL 25(OH) VITAMIN D 29.9 NG/ML (20.0-100.0); TOTAL PROTEIN 6.1 G/DL (5.7-8.2); TRIGLYCERIDES LEVEL 122 MG/DL (<150)
[2022-12-16 17:52] LABS: HEMOGLOBIN A1c 5.5 % (4.0-6.0)
== END ==
LOC: M LAB REF 16:04
PROVIDERS: ATTEND Nurse Practitioner Family
DX: Z13.228 Encounter for screening for other metabolic disorders (principal)

== ENCOUNTER 2023-05-04 14:33 | Emergency (ER) | payer OTHER ==
[~2023-05-04] VITALS: Ht 160 cm; Wt 95.9 kg
[~2023-05-04 14:33] MED LIST changes: -GABA-283; +GABA-284
[2023-05-04 14:34] VITALS: TEMP 98.5
[2023-05-04 16:49] LABS: BASO % 0.3 % (0.0-1.0); EOS # 0.1 10^3/uL (0.0-0.5); EOS % 1.8 % (0.0-3.0); HEMATOCRIT 40.4 % (36.0-47.0); HEMOGLOBIN 13.1 g/dl (12.0-15.5); LYMPH # 2.2 10^3/uL (1.5-5.0); LYMPH % 30.9 % (24.0-44.0); MEAN CORPUSCULAR HEMOGLOBIN 29.6 pg (27.0-33.0); MEAN CORPUSCULAR HGB CONC 32.4 g/dl (32.0-36.5); MEAN CORPUSCULAR VOLUME 91.2 fl (80.0-96.0); MONO # 0.5 10^3/uL (0.0-0.8); MONO % 6.6 % (2.0-8.0); NEUTROPHILS # 4.2 10^3/uL (1.5-8.5); PLATELET COUNT, AUTOMATED 247 10^3/uL (150-450); RED BLOOD COUNT 4.43 10^6/uL (4.00-5.40); WHITE BLOOD COUNT 7.1 10^3/uL (4.0-10.0)
[2023-05-04] MEDS ORDERED: ONDANSETRON 4MG 2ML VIAL IV ONE (17:00)
[2023-05-04] MEDS ORDERED: NS 1,000 ML IV ONE (17:00)
[2023-05-04] MEDS ORDERED: FAMOTIDINE 20MG/2ML VIAL IVP ONE (17:00)
[2023-05-04 17:18] LABS: LIPASE 27 U/L (12-53)
[2023-05-04 17:21] LABS: ALBUMIN 3.6 G/DL (3.2-5.2); ALKALINE PHOSPHATASE 77 U/L (46-116); ALT/SGPT 15 U/L (7.0-40); AST/SGOT 13 U/L (<34); BILIRUBIN,DIRECT < 0.1 MG/DL (<0.4); BILIRUBIN,TOTAL 0.3 MG/DL (0.3-1.2); BLOOD UREA NITROGEN 20 MG/DL (9-23); CALCIUM LEVEL 9.2 MG/DL (8.5-10.1); CARBON DIOXIDE LEVEL 26 MMOL/L (20-31); CHLORIDE LEVEL 105 MMOL/L (98-107); CREATININE FOR GFR 0.97 MG/DL (0.55-1.30); GLOMERULAR FILTRATION RATE > 60.0 (>51); GLUCOSE, FASTING 80 MG/DL (60-100); POTASSIUM SERUM 4.1 MMOL/L (3.5-5.1); SODIUM LEVEL 140 MMOL/L (136-145); TOTAL PROTEIN 6.4 G/DL (5.7-8.2)
[2023-05-04 17:31] LABS: CK-MB VALUE MASS < 1.0 NG/ML (<3.6)
[2023-05-04 17:33] LABS: CPK CREATINE PHOSPHOKINASE 71 U/L (34-145)
[2023-05-04] MEDS ORDERED: ISOVUE-370 76% 100ML VIAL As Ordered ONE (19:05)
[2023-05-04 19:35] VITALS: BP 150/82; O2SAT 98
== END 2023-05-04 21:20 | disposition left against medical advice (07) ==
LOC: M ED 14:33
DX: R10.10 Upper abdominal pain, unspecified (principal); E78.5 Hyperlipidemia, unspecified; Z87.442 Personal history of urinary calculi; F41.9 Anxiety disorder, unspecified; F32.A Depression, unspecified; Z79.899 Other long term (current) drug therapy
CPT/HCPCS: 74177; 76705; 80048; 80076; 81001; 82550; 82553; 83690; 85025; 87088; 87186; 93005; 96374; 96375; 99284; J2405; Q9967; S0028